=== PATIENT | male | born 1935 | race African-American/Black ===

== ENCOUNTER 2018-01-10 14:35 | Inpatient (IN) | payer MEDICARE ==
[~2018-01-10] VITALS: Ht 182.9 cm; Wt 79.6 kg
[2018-01-10] MEDS ORDERED: CLONIDINE 0.2MG TABLET PO ONE (16:00)
[2018-01-10 16:31] LABS: BASOPHILS % 0.6 % (0.0-2.0); EOSINOPHILS % 0.3 % (0.0-5.0); HEMATOCRIT. 38.9 % (42.0-52.0); HEMOGLOBIN. 13.2 g/dL (14.0-18.0); LYMPHOCYTES % 14.9 % (20.0-50.0); MEAN CORPUSCULAR HEMOGLOBIN 32.4 pg (28.0-32.0); MEAN CORPUSCULAR VOLUME 95.8 fL (80.0-94.0); MONOCYTES % 12.2 % (2.0-8.0); PLATELET 217 x1000/uL (130-400); RED BLOOD CELL COUNT 4.06 mill/uL (4.7-6.1); RED CELL DISTRIBUTION WIDTH 14.4 % (11.6-14.6)
[2018-01-10 16:34] LABS: CHLORIDE 105 mEq/L (98-107)
[2018-01-10 16:36] LABS: PROTHROMBIN TIME 10.1 sec (9.1-11.1)
[2018-01-10] MEDS ORDERED: ACETAMINOPHEN 325MG TABLET PO ONE (17:00)
[2018-01-10 19:18] LABS: CLARITY URINE CLEAR (CLEAR); COLOR URINE YELLOW (YELLOW); KETONES URINE 2+ (NEGATIVE); LEUKOCYTE ESTERASE URINE 1+ (NEGATIVE); NITRITE URINE POSITIVE (NEGATIVE); OCCULT BLOOD URINE TRACE (NEGATIVE); PH URINE 5.5 (4.5-8.0); PROTEIN URINE TRACE (NEGATIVE); SPECIFIC GRAVITY URINE 1.022 (1.005-1.030)
[2018-01-10 20:00] VITALS: BP_SYST 127; BP_SYST 165; BP_DIAS 58; BP_DIAS 93
[2018-01-10] MEDS ORDERED: CEFTRIAXONE 1 G PREMIX 50 ML IV ONE (20:30)
[2018-01-10] MEDS ORDERED: MORPHINE SULFATE 4 MG/ML CPJ (NOT FOR IM USE) IV PRN (20:45)
[2018-01-10] MEDS ORDERED: ONDANSETRON HCL 4MG/2ML INJ IV PRN (20:45)
[2018-01-10 22:00] VITALS: BP 165/93
[2018-01-10] MEDS: LOSARTAN POTASSIUM 50 MG TABLET PO SCH (22:48)
[2018-01-11] VITALS: BP 169/70
[2018-01-11 04:00] VITALS: BP 174/68
[2018-01-11 05:51] LABS: HEMATOCRIT. 35.7 % (42.0-52.0); HEMOGLOBIN. 11.9 g/dL (14.0-18.0); MEAN CORPUSCULAR HEMOGLOBIN 31.7 pg (28.0-32.0); MEAN CORPUSCULAR VOLUME 95.1 fL (80.0-94.0); MEAN PLATELET VOLUME 9.2 fl (7.4-10.4); PLATELET 179 x1000/uL (130-400); RED BLOOD CELL COUNT 3.76 mill/uL (4.7-6.1); RED CELL DISTRIBUTION WIDTH 14.5 % (11.6-14.6)
[2018-01-11] MEDS: CLONIDINE 0.1MG TABLET PO PRN ×2 (05:51→16:33)
[2018-01-11 06:38] LABS: CHLORIDE 106 mEq/L (98-107)
[2018-01-11 08:00] VITALS: BP 172/86
[2018-01-11] MEDS: AMLODIPINE 10MG TABLET PO SCH (08:13)
[2018-01-11] MEDS: ENOXAPARIN 40MG/0.4ML SYR SUBCUT SCH (08:13)
[2018-01-11] MEDS: LOSARTAN POTASSIUM 50 MG TABLET PO SCH ×2 (08:13→20:14)
[2018-01-11 09:18] LABS: PLATELET ESTIMATE NORMAL
[2018-01-11] MEDS ORDERED: IOHEXOL-350 100 ML BOTTLE ONE (09:48)
[2018-01-11] MEDS ORDERED: CLONIDINE 0.1MG TABLET PO PRN (12:00)
[2018-01-11] MEDS: LEVOFLOXACIN 500MG PREMIX 100 ML IV SCH (14:11)
[2018-01-11] MEDS ORDERED: POTASSIUM CHLORIDE 20MEQ TABLET SR PO NR (16:30)
[2018-01-11 18:49] VITALS: BP 144/68
[2018-01-11 20:00] VITALS: BP 187/77
[2018-01-11 20:12] VITALS: BP 168/80
[2018-01-12] VITALS (8 sets, daily range): BP systolic 141–199; BP diastolic 75–91
[2018-01-12] MEDS: CLONIDINE 0.1MG TABLET PO PRN ×2 (01:16→06:18)
[2018-01-12] MEDS: AMLODIPINE 10MG TABLET PO SCH (08:33)
[2018-01-12] MEDS: LOSARTAN POTASSIUM 50 MG TABLET PO SCH (08:33)
[2018-01-12] MEDS: ENOXAPARIN 40MG/0.4ML SYR SUBCUT SCH (08:33)
[2018-01-12] MEDS ORDERED: CLOTRIMAZOLE 1% CREAM 30GM TOP SCH (10:30)
[2018-01-12] MEDS: LEVOFLOXACIN 500MG PREMIX 100 ML IV SCH (14:00)
[2018-01-12] MEDS ORDERED: HYDRALAZINE HCL 100MG TABLET PO NR (18:03)
== END 2018-01-12 20:25 | disposition home health service (06) | DRG 300 ==
LOC: ER 14:35 → 5WST 19:16 → ENRESERV 20:10
PROVIDERS: ADMIT Hospitalist; ATTEND Hospitalist
DX: I73.9 Peripheral vascular disease, unspecified (principal); N39.0 Urinary tract infection, site not specified; E87.2 Acidosis; L97.219 Non-pressure chronic ulcer of right calf with unspecified severity; I16.0 Hypertensive urgency; E87.6 Hypokalemia; B35.1 Tinea unguium; B35.3 Tinea pedis; I10 Essential (primary) hypertension; Z91.81 History of falling; B96.20 Unspecified Escherichia coli [E. coli] as the cause of diseases classified elsewhere
CPT/HCPCS: 36415; 71045; 72191; 73706; 80048; 80053; 81003; 83605; 83880; 84484; 85025; 85610; 85730; 87040; 87077; 87086; 87186; 93005; 93923; 93970; 96365; 99285; J0696; J1650; J1956; J2270; J7050; Q9967

== ENCOUNTER 2018-06-16 11:36 | Inpatient (IN) | payer MEDICARE ==
[~2018-06-16] VITALS: Ht 182.9 cm; Wt 81.2 kg
[2018-06-16] MEDS ORDERED: HYDRALAZINE 20MG/ML VIAL IV ONE ×2 (17:00→19:30)
[2018-06-16 17:27] LABS: HEMATOCRIT. 42.1 % (42.0-52.0); HEMOGLOBIN. 14.1 g/dL (14.0-18.0); MEAN CORPUSCULAR HEMOGLOBIN 31.8 pg (28.0-32.0); MEAN CORPUSCULAR VOLUME 95.3 fL (80.0-94.0); MEAN PLATELET VOLUME 8.9 fl (7.4-10.4); PLATELET 258 x1000/uL (130-400); RED BLOOD CELL COUNT 4.41 mill/uL (4.7-6.1)
[2018-06-16 17:33] LABS: CHLORIDE 102 mEq/L (98-107)
[2018-06-16 17:53] LABS: PLATELET ESTIMATE NORMAL
[2018-06-16] MEDS ORDERED: CLINDAMYCIN 900 MG in DEXTROSE 5% WATER 50 ML IV ONE (18:15)
[2018-06-16] MEDS ORDERED: SODIUM CHLORIDE 0.9% 250 ML IV ONE (20:15)
[2018-06-16] MEDS ORDERED: LABETALOL 5MG/ML SYR 20 MG/4 ML SYRINGE IV ONE (21:00)
[2018-06-16] MEDS ORDERED: NITROGLYCERIN 0.4MG TABLET SL SL PRN (21:15)
[2018-06-16] MEDS ORDERED: ACETAMINOPHEN 325MG TABLET PO PRN (21:15)
[2018-06-16] MEDS ORDERED: ZOLPIDEM TARTRATE 5MG TABLET PO PRN (21:15)
[2018-06-16] MEDS ORDERED: MAGNESIUM/ALUMINUM HYDROXIDE/SIMETHICONE 30ML UDC PO PRN (21:15)
[2018-06-16] MEDS ORDERED: GUAIFENESIN 200MG/10ML SUGAR FREE UDC PO PRN (21:15)
[2018-06-16] MEDS ORDERED: ONDANSETRON HCL 4MG/2ML INJ IV PRN (21:15)
[2018-06-16] MEDS ORDERED: DOCUSATE SODIUM 100MG CAPSULE PO PRN (21:15)
[2018-06-16] MEDS ORDERED: IPRATROPIUM/ALBUTEROL 0.5-3(2.5)MG/3ML NEB INH PRN (21:15)
[2018-06-16] MEDS ORDERED: TRAMADOL 50MG TABLET PO PRN (21:45)
[2018-06-16] MEDS ORDERED: MORPHINE SULFATE 4 MG/ML CPJ (NOT FOR IM USE) IV PRN (21:45)
[2018-06-17] MEDS: CLONIDINE 0.1MG TABLET PO PRN (00:44)
[2018-06-17 01:15] VITALS: BP 128/87
[2018-06-17 01:54] VITALS: BP 128/87
[2018-06-17] MEDS: PIPERACILLIN/TAZ 3.375G PREMIX 50 ML IV SCH ×3 (02:56→21:21)
[2018-06-17] MEDS: SODIUM CHLORIDE 0.9% 1,000 ML IV SCH ×2 (02:57→20:44)
[2018-06-17] MEDS ORDERED: VANCOMYCIN 1 G PREMIX 200 ML IV SCH (03:00)
[2018-06-17 04:00] VITALS: BP 151/69
[2018-06-17 08:00] VITALS: BP 156/77
[2018-06-17] MEDS: METOPROLOL TARTRATE 25MG TABLET PO SCH ×2 (11:00→20:45)
[2018-06-17] MEDS: ASCORBIC ACID 500 MG TABLET PO SCH ×2 (11:01→20:44)
[2018-06-17] MEDS: ASPIRIN 325MG EC TABLET PO SCH (11:01)
[2018-06-17] MEDS: FAMOTIDINE 20MG TABLET PO SCH ×2 (11:01→20:44)
[2018-06-17] MEDS: ZINC SULFATE 220 MG ( 50 ) CAPSULE PO SCH (11:01)
[2018-06-17] MEDS: ENOXAPARIN 40MG/0.4ML SYR SUBCUT SCH (11:02)
[2018-06-17 12:00] VITALS: BP 158/69
[2018-06-17] MEDS: VANCOMYCIN 1 G PREMIX 200 ML IV SCH ×2 (14:18→23:26)
[2018-06-17 20:00] VITALS: BP 160/79
[2018-06-18] VITALS: BP 187/81
[2018-06-18] MEDS: CLONIDINE 0.1MG TABLET PO PRN (01:22)
[2018-06-18 01:46] LABS: *AMPHETAMINES SCREEN URINE NEGATIVE (NEGATIVE); CANNABINOID URINE SCREEN NEGATIVE (NEGATIVE); METHADONE URINE SCREEN NEGATIVE (NEGATIVE); OPIATES URINE SCREEN NEGATIVE (NEGATIVE); PHENCYCLIDINE URINE SCREEN NEGATIVE (NEGATIVE)
[2018-06-18 01:47] LABS: *BARBITURATES SCREEN URINE NEGATIVE (NEGATIVE); *BENZODIAZEPINES SCREEN URINE NEGATIVE (NEGATIVE); *COCAINE SCREEN URINE NEGATIVE (NEGATIVE)
[2018-06-18 04:00] VITALS: BP 197/80
[2018-06-18] MEDS: PIPERACILLIN/TAZ 3.375G PREMIX 50 ML IV SCH ×3 (04:32→20:29)
[2018-06-18 06:36] LABS: CHLORIDE 110 mEq/L (98-107)
[2018-06-18 08:00] VITALS: BP 195/88
[2018-06-18] MEDS: ASCORBIC ACID 500 MG TABLET PO SCH ×2 (09:24→20:29)
[2018-06-18] MEDS: FAMOTIDINE 20MG TABLET PO SCH ×2 (09:24→20:29)
[2018-06-18] MEDS: LISINOPRIL 20MG TABLET PO SCH ×2 (09:24→20:35)
[2018-06-18] MEDS: ZINC SULFATE 220 MG ( 50 ) CAPSULE PO SCH (09:24)
[2018-06-18] MEDS: AMLODIPINE 10MG TABLET PO SCH (09:25)
[2018-06-18] MEDS: METOPROLOL TARTRATE 25MG TABLET PO SCH ×2 (09:25→20:31)
[2018-06-18] MEDS: ENOXAPARIN 40MG/0.4ML SYR SUBCUT SCH (09:27)
[2018-06-18] MEDS: ASPIRIN 325MG EC TABLET PO SCH (09:28)
[2018-06-18] MEDS ORDERED: POTASSIUM CHLORIDE 20MEQ/PACKET PO NR (11:00)
[2018-06-18] MEDS: MULTIVITAMINS,THER W-MINERALS TABLET PO SCH (17:05)
[2018-06-18] MEDS: SODIUM CHLORIDE 0.9% 1,000 ML IV SCH (17:06)
[2018-06-18 20:00] VITALS: BP 143/75
[2018-06-18] MEDS ORDERED: VANCOMYCIN 1 G PREMIX 200 ML IV NR (21:00)
[2018-06-19] VITALS: BP 155/75
[2018-06-19 04:00] VITALS: BP 148/69
[2018-06-19] MEDS: PIPERACILLIN/TAZ 3.375G PREMIX 50 ML IV SCH ×3 (04:56→21:44)
[2018-06-19 08:00] VITALS: BP 148/69
[2018-06-19] MEDS: ENOXAPARIN 40MG/0.4ML SYR SUBCUT SCH (09:00)
[2018-06-19] MEDS: ASPIRIN 325MG EC TABLET PO SCH (09:06)
[2018-06-19] MEDS: METOPROLOL TARTRATE 25MG TABLET PO SCH ×2 (09:07→21:44)
[2018-06-19] MEDS: LISINOPRIL 20MG TABLET PO SCH ×2 (09:07→21:43)
[2018-06-19] MEDS: AMLODIPINE 10MG TABLET PO SCH (09:07)
[2018-06-19] MEDS: ASCORBIC ACID 500 MG TABLET PO SCH ×2 (09:07→21:43)
[2018-06-19] MEDS: MULTIVITAMINS,THER W-MINERALS TABLET PO SCH (09:07)
[2018-06-19] MEDS: FAMOTIDINE 20MG TABLET PO SCH ×2 (09:07→21:43)
[2018-06-19] MEDS: ZINC SULFATE 220 MG ( 50 ) CAPSULE PO SCH (09:07)
[2018-06-19 12:00] VITALS: BP 153/79
[2018-06-19] MEDS: SODIUM CHLORIDE 0.9% 1,000 ML IV SCH ×2 (15:00→20:07)
[2018-06-19 16:00] VITALS: BP 142/81
[2018-06-19 20:00] VITALS: BP 194/88
[2018-06-19] MEDS: VANCOMYCIN 1 G PREMIX 200 ML IV SCH (20:07)
[2018-06-20] VITALS: BP 197/85
[2018-06-20] MEDS: CLONIDINE 0.1MG TABLET PO PRN ×2 (00:22→17:29)
[2018-06-20 04:00] VITALS: BP 163/70
[2018-06-20] MEDS: PIPERACILLIN/TAZ 3.375G PREMIX 50 ML IV SCH ×3 (05:05→20:39)
[2018-06-20 07:42] LABS: CHLORIDE 108 mEq/L (98-107)
[2018-06-20 07:43] LABS: BASOPHILS % 1.2 % (0.0-2.0); HEMATOCRIT. 34.6 % (42.0-52.0); HEMOGLOBIN. 11.5 g/dL (14.0-18.0); LYMPHOCYTES % 29.1 % (20.0-50.0); MEAN CORPUSCULAR HEMOGLOBIN 31.6 pg (28.0-32.0); MEAN CORPUSCULAR VOLUME 94.7 fL (80.0-94.0); MEAN PLATELET VOLUME 9.1 fl (7.4-10.4); MONOCYTES % 13.2 % (2.0-8.0); NEUTROPHILS % 52.5 % (40.0-76.0); PLATELET 259 x1000/uL (130-400); RED BLOOD CELL COUNT 3.65 mill/uL (4.7-6.1); RED CELL DISTRIBUTION WIDTH 13.9 % (11.6-14.6)
[2018-06-20 08:00] VITALS: BP 133/94
[2018-06-20] MEDS: ASPIRIN 325MG EC TABLET PO SCH (09:21)
[2018-06-20] MEDS: FAMOTIDINE 20MG TABLET PO SCH ×2 (09:21→20:39)
[2018-06-20] MEDS: LISINOPRIL 20MG TABLET PO SCH ×2 (09:21→20:37)
[2018-06-20] MEDS: ASCORBIC ACID 500 MG TABLET PO SCH ×2 (09:21→20:37)
[2018-06-20] MEDS: ZINC SULFATE 220 MG ( 50 ) CAPSULE PO SCH (09:21)
[2018-06-20] MEDS: MULTIVITAMINS,THER W-MINERALS TABLET PO SCH (09:21)
[2018-06-20] MEDS: METOPROLOL TARTRATE 25MG TABLET PO SCH ×2 (09:21→20:37)
[2018-06-20] MEDS: AMLODIPINE 10MG TABLET PO SCH (09:21)
[2018-06-20] MEDS: ENOXAPARIN 40MG/0.4ML SYR SUBCUT SCH (09:22)
[2018-06-20] MEDS: CLOTRIMAZOLE 1% CREAM 30GM TOP SCH (10:03)
[2018-06-20] MEDS: VANCOMYCIN 1 G PREMIX 200 ML IV SCH (11:56)
[2018-06-20 12:00] VITALS: BP 155/73
[2018-06-20] MEDS ORDERED: HYDRALAZINE 20MG/ML VIAL IV PRN (13:45)
[2018-06-20 16:00] VITALS: BP 171/82
[2018-06-20 20:00] VITALS: BP 151/74
[2018-06-20] MEDS: ATORVASTATIN CALCIUM 20MG TABLET PO SCH (20:39)
[2018-06-20] MEDS: SODIUM CHLORIDE 0.9% 1,000 ML IV SCH (22:11)
[2018-06-21] VITALS: BP 152/73
[2018-06-21 04:00] VITALS: BP 148/75
[2018-06-21] MEDS: PIPERACILLIN/TAZ 3.375G PREMIX 50 ML IV SCH ×3 (05:06→20:52)
[2018-06-21 08:00] VITALS: BP 188/77
[2018-06-21] MEDS: CLOTRIMAZOLE 1% CREAM 30GM TOP SCH (09:00)
[2018-06-21] MEDS: ASPIRIN 325MG EC TABLET PO SCH (09:16)
[2018-06-21] MEDS: AMLODIPINE 10MG TABLET PO SCH ×2 (09:16→20:53)
[2018-06-21] MEDS: METOPROLOL TARTRATE 25MG TABLET PO SCH ×2 (09:16→20:52)
[2018-06-21] MEDS: ENOXAPARIN 40MG/0.4ML SYR SUBCUT SCH (09:17)
[2018-06-21] MEDS: ASCORBIC ACID 500 MG TABLET PO SCH ×2 (09:17→20:52)
[2018-06-21] MEDS: ZINC SULFATE 220 MG ( 50 ) CAPSULE PO SCH (09:17)
[2018-06-21] MEDS: MULTIVITAMINS,THER W-MINERALS TABLET PO SCH (09:17)
[2018-06-21] MEDS: LISINOPRIL 20MG TABLET PO SCH ×2 (09:17→20:52)
[2018-06-21] MEDS: FAMOTIDINE 20MG TABLET PO SCH ×2 (09:17→21:00)
[2018-06-21] MEDS: VANCOMYCIN 1 G PREMIX 200 ML IV SCH (09:18)
[2018-06-21] MEDS ORDERED: POTASSIUM CHLORIDE 20MEQ/PACKET PO NR (11:45)
[2018-06-21] MEDS ORDERED: HYDRALAZINE 20MG/ML VIAL IV PRN (11:45)
[2018-06-21 12:00] VITALS: BP_SYST 103; BP_SYST 146; BP_DIAS 72
[2018-06-21] MEDS: HYDRALAZINE HCL 50MG TABLET PO SCH ×2 (14:11→22:37)
[2018-06-21 16:43] VITALS: BP 103/72
[2018-06-21 20:00] VITALS: BP 172/75
[2018-06-21] MEDS: ATORVASTATIN CALCIUM 20MG TABLET PO SCH (20:52)
[2018-06-22] VITALS (15 sets, daily range): BP systolic 105–173; BP diastolic 58–94
[2018-06-22] MEDS: PIPERACILLIN/TAZ 3.375G PREMIX 50 ML IV SCH ×3 (05:46→21:18)
[2018-06-22] MEDS: HYDRALAZINE HCL 50MG TABLET PO SCH ×3 (05:47→22:31)
[2018-06-22] MEDS: ASPIRIN 325MG EC TABLET PO SCH (08:55)
[2018-06-22] MEDS: MULTIVITAMINS,THER W-MINERALS TABLET PO SCH (08:56)
[2018-06-22] MEDS: ZINC SULFATE 220 MG ( 50 ) CAPSULE PO SCH (08:56)
[2018-06-22] MEDS: CLOTRIMAZOLE 1% CREAM 30GM TOP SCH (08:56)
[2018-06-22] MEDS: FAMOTIDINE 20MG TABLET PO SCH ×2 (08:56→21:20)
[2018-06-22] MEDS: ASCORBIC ACID 500 MG TABLET PO SCH ×2 (08:56→21:18)
[2018-06-22] MEDS: METOPROLOL TARTRATE 25MG TABLET PO SCH ×2 (08:58→21:19)
[2018-06-22] MEDS: AMLODIPINE 10MG TABLET PO SCH ×2 (08:58→21:20)
[2018-06-22] MEDS: LISINOPRIL 20MG TABLET PO SCH ×2 (08:58→21:21)
[2018-06-22] MEDS: VANCOMYCIN 1 G PREMIX 200 ML IV SCH (09:00)
[2018-06-22] MEDS ORDERED: MIDAZOLAM HCL 2 MG/2 ML VIAL ONE (10:07)
[2018-06-22] MEDS ORDERED: IODIXANOL 320MG/ML 100 ML BOTTLE IV ONE (10:08)
[2018-06-22] MEDS ORDERED: LIDOCAINE HCL 1% 20ML VIAL (Pyxis) INJ ONE (10:08)
[2018-06-22] MEDS ORDERED: FENTANYL CITRATE/PF 50MCG/ML 2ML VIAL ONE (10:08)
[2018-06-22] MEDS ORDERED: ASPIRIN/SOD BICARB/CITRIC ACID 324MG TAB EFF ONE (10:09)
[2018-06-22] MEDS ORDERED: METOPROLOL TARTRATE 5MG/5ML VIAL IV ONE (10:18)
[2018-06-22] MEDS ORDERED: LABETALOL HCL 5MG/ML VIAL 20ML IV ONE (10:27)
[2018-06-22] MEDS ORDERED: HYDRALAZINE 20MG/ML VIAL ONE (10:32)
[2018-06-22] MEDS ORDERED: NITROGLYCERIN 50MG PREMIX 0 ML IV ONE (10:43)
[2018-06-22] MEDS ORDERED: MAGNESIUM 2 G PREMIX 50 ML IV ONE ×2 (10:59→12:30)
[2018-06-22 11:16] LABS: BASOPHILS % 1.2 % (0.0-2.0); EOSINOPHILS % 1.7 % (0.0-5.0); HEMATOCRIT. 37.1 % (42.0-52.0); HEMOGLOBIN. 12.5 g/dL (14.0-18.0); LYMPHOCYTES % 19.5 % (20.0-50.0); MEAN CORPUSCULAR HEMOGLOBIN 31.3 pg (28.0-32.0); MEAN CORPUSCULAR VOLUME 92.8 fL (80.0-94.0); MEAN PLATELET VOLUME 8.6 fl (7.4-10.4); MONOCYTES % 12.8 % (2.0-8.0); NEUTROPHILS % 64.8 % (40.0-76.0); PLATELET 302 x1000/uL (130-400); RED CELL DISTRIBUTION WIDTH 13.9 % (11.6-14.6)
[2018-06-22] MEDS ORDERED: PROTAMINE SULFATE 10MG/ML VIAL 5ML IV ONE (11:23)
[2018-06-22 11:28] LABS: CHLORIDE 108 mEq/L (98-107)
[2018-06-22 11:37] LABS: T4 FREE 1.76 ng/dL (0.76-1.46)
[2018-06-22 12:19] LABS: VITAMIN B12 SERUM 791 pg/mL (211-911)
[2018-06-22] MEDS ORDERED: POTASSIUM CHLORIDE 20MEQ/PACKET PO SCH (12:30)
[2018-06-22] MEDS: FOLIC ACID 1 MG, THIAMINE HCL 100 MG, MVI, ADULT NO.1 10 ML in DEXTROSE 5% WATER 1,000 ML IV SCH ×4 (13:52)
[2018-06-22] MEDS ORDERED: ACETAMINOPHEN 325MG TABLET PO PRN (14:00)
[2018-06-22] MEDS ORDERED: KCL 20MEQ/100ML PREMIX 100 ML IV SCH (14:00)
[2018-06-22] MEDS ORDERED: ATROPINE SULFATE 1MG/10ML SYR IV PRN (14:00)
[2018-06-22] MEDS: CHLORDIAZEPOXIDE 25MG CAPSULE PO SCH ×2 (14:20→22:31)
[2018-06-22] MEDS ORDERED: HEPARIN SODIUM 1,000 UNIT/1ML VIAL IV ONE (14:48)
[2018-06-22] MEDS: CLONIDINE 0.1MG TABLET PO PRN (17:28)
[2018-06-22] MEDS: SODIUM CHLORIDE 0.45% 1,000 ML IV SCH (20:58)
[2018-06-22] MEDS ORDERED: CILOSTAZOL 100MG TABLET PO SCH (21:00)
[2018-06-22] MEDS: ATORVASTATIN CALCIUM 20MG TABLET PO SCH (21:18)
[2018-06-22] MEDS: CILOSTAZOL 100MG TABLET PO SCH (22:32)
[2018-06-23] VITALS (10 sets, daily range): BP systolic 117–147; BP diastolic 54–93
[2018-06-23] MEDS: SODIUM CHLORIDE 0.45% 1,000 ML IV SCH ×2 (04:00→13:42)
[2018-06-23] MEDS: PIPERACILLIN/TAZ 3.375G PREMIX 50 ML IV SCH (04:23)
[2018-06-23] MEDS: HYDRALAZINE HCL 50MG TABLET PO SCH ×2 (06:37→13:40)
[2018-06-23] MEDS: CHLORDIAZEPOXIDE 25MG CAPSULE PO SCH ×2 (06:37→13:35)
[2018-06-23 07:29] LABS: BASOPHILS % 0.9 % (0.0-2.0); EOSINOPHILS % 2.2 % (0.0-5.0); HEMATOCRIT. 33.7 % (42.0-52.0); HEMOGLOBIN. 11.2 g/dL (14.0-18.0); LYMPHOCYTES % 26.5 % (20.0-50.0); MEAN CORPUSCULAR HEMOGLOBIN 31.4 pg (28.0-32.0); MEAN CORPUSCULAR VOLUME 94.5 fL (80.0-94.0); MEAN PLATELET VOLUME 8.7 fl (7.4-10.4); MONOCYTES % 13.5 % (2.0-8.0); NEUTROPHILS % 56.9 % (40.0-76.0); PLATELET 252 x1000/uL (130-400); RED BLOOD CELL COUNT 3.56 mill/uL (4.7-6.1); RED CELL DISTRIBUTION WIDTH 14.2 % (11.6-14.6)
[2018-06-23 07:42] LABS: CHLORIDE 110 mEq/L (98-107)
[2018-06-23] MEDS: ASPIRIN 325MG EC TABLET PO SCH (08:41)
[2018-06-23] MEDS: LISINOPRIL 20MG TABLET PO SCH (08:41)
[2018-06-23] MEDS: ZINC SULFATE 220 MG ( 50 ) CAPSULE PO SCH (08:42)
[2018-06-23] MEDS: FAMOTIDINE 20MG TABLET PO SCH (08:42)
[2018-06-23] MEDS: ASCORBIC ACID 500 MG TABLET PO SCH (08:42)
[2018-06-23] MEDS: VANCOMYCIN 1 G PREMIX 200 ML IV SCH (08:42)
[2018-06-23] MEDS: METOPROLOL TARTRATE 25MG TABLET PO SCH (08:42)
[2018-06-23] MEDS: CILOSTAZOL 100MG TABLET PO SCH (08:42)
[2018-06-23] MEDS: AMLODIPINE 10MG TABLET PO SCH (08:42)
[2018-06-23] MEDS: MULTIVITAMINS,THER W-MINERALS TABLET PO SCH (08:42)
[2018-06-23] MEDS: CLOTRIMAZOLE 1% CREAM 30GM TOP SCH (09:58)
[2018-06-23] MEDS ORDERED: POTASSIUM CHLORIDE 20MEQ/PACKET PO SCH (13:00)
[2018-06-23] MEDS: FOLIC ACID 1 MG, THIAMINE HCL 100 MG, MVI, ADULT NO.1 10 ML in DEXTROSE 5% WATER 1,000 ML IV SCH ×4 (14:00)
[2018-06-23] MEDS ORDERED: CLINDAMYCIN HCL 150MG CAPSULE PO SCH (14:00)
== END 2018-06-23 18:01 | DRG 872 ==
LOC: ER 11:36 → EDBEDREQ 16:58 → SUPCPDRO 20:42 → 8WST 20:42 → EDBEDREQTM 20:45 → EDBEDREQ 20:45 → ENRESERV 23:47 → 3WST 06-22 12:15
PROVIDERS: ADMIT Internal Medicine; ATTEND Internal Medicine
PROC: B41G1ZZ Fluoroscopy of Left Lower Extremity Arteries using Low Osmolar Contrast (ICD-10-PCS; principal; 2018-06-22)
PROC: B41F1ZZ Fluoroscopy of Right Lower Extremity Arteries using Low Osmolar Contrast (ICD-10-PCS; 2018-06-22)
DX: A41.9 Sepsis, unspecified organism (principal); L97.909 Non-pressure chronic ulcer of unspecified part of unspecified lower leg with unspecified severity; E87.2 Acidosis; L03.116 Cellulitis of left lower limb; L97.929 Non-pressure chronic ulcer of unspecified part of left lower leg with unspecified severity; R65.20 Severe sepsis without septic shock; I10 Essential (primary) hypertension; I16.0 Hypertensive urgency; R79.89 Other specified abnormal findings of blood chemistry; B35.3 Tinea pedis; E83.51 Hypocalcemia; E87.6 Hypokalemia; I70.202 Unspecified atherosclerosis of native arteries of extremities, left leg; N28.9 Disorder of kidney and ureter, unspecified; Z91.81 History of falling; R26.9 Unspecified abnormalities of gait and mobility
CPT/HCPCS: 36246; 36415; 71045; 73590; 73718; 75710; 80048; 80061; 80202; 80305; 82140; 82607; 83036; 83605; 83735; 83880; 84439; 84443; 84484; 85347; 93005; 93306; 93923; 93970; 96365; 96375; 97162; 97165; 99291; C1725; C1760; C1769; C1893; J0360; J1644; J1650; J2250; J2543; J2720; J3010; J3370; J3411; J3475; J3480; J3490; J7060; J7070; Q9967

== ENCOUNTER 2020-05-23 16:13 | Inpatient (IN) | payer MEDICARE ==
[~2020-05-23] VITALS: Ht 180.3 cm; Wt 75.3 kg
[~2020-05-23 16:13] MED LIST: AMLO10TA80 PO; ATOR20TA PO; CILO100T PO; CLON-457 PO; FAMO20TA8 PO; HYDR-4135 PO; LISI20TA31 PO; METO-396 PO; NITR0.4T49 SL; ONDA4TAB11 PO
[2020-05-23] MEDS ORDERED: METO-539 MT (16:51)
[2020-05-23] MEDS ORDERED: CLON-457 PO (16:51)
[2020-05-23] MEDS ORDERED: ASPI-1497 MT (16:51)
[2020-05-23] MEDS ORDERED: ALBU4TAB6 INH (16:51)
[2020-05-23] MEDS ORDERED: CRAN250C PO (16:51)
[2020-05-23] MEDS ORDERED: GABA-529 MT (16:51)
[2020-05-23] MEDS ORDERED: DOCU-138 MT (16:51)
[2020-05-23] MEDS ORDERED: APIX5TAB MT (16:51)
[2020-05-23] MEDS ORDERED: OXYC-662 MT (16:51)
[2020-05-23] MEDS ORDERED: FERR325T6 MT (16:51)
[2020-05-23] MEDS ORDERED: TOPUD MT (16:51)
[2020-05-23] MEDS ORDERED: ASCO-339 MT (16:51)
[2020-05-23] MEDS ORDERED: MELA1LIQ MT (16:51)
[2020-05-23] MEDS ORDERED: ACET-2708 MT (16:51)
[2020-05-23 17:03] VITALS: BP 123/75
[2020-05-23] MEDS ORDERED: DOCUSATE SODIUM 100MG CAPSULE PO PRN (19:45)
[2020-05-23] MEDS ORDERED: DIPHENHYDRAMINE 50MG/ML VIAL IV PRN (19:45)
[2020-05-23] MEDS ORDERED: ONDANSETRON HCL 4MG/2ML INJ IV PRN (19:45)
[2020-05-23] MEDS ORDERED: GUAIFENESIN 200MG/10ML SUGAR FREE UDC PO PRN (19:45)
[2020-05-23] MEDS ORDERED: ACETAMINOPHEN 325MG TABLET PO PRN (19:45)
[2020-05-23] MEDS ORDERED: HYDRALAZINE 20MG/ML VIAL IV PRN (19:45)
[2020-05-23] MEDS ORDERED: IPRATROPIUM/ALBUTEROL 0.5-3(2.5)MG/3ML NEB HHN PRN (19:45)
[2020-05-23] MEDS ORDERED: LORAZEPAM 2MG/ML CPJ IV PRN (19:45)
[2020-05-23] MEDS ORDERED: MAGNESIUM/ALUMINUM HYDROXIDE/SIMETHICONE 30ML UDC PO PRN (19:45)
[2020-05-23] MEDS ORDERED: MORPHINE SULFATE 2 MG/ML CPJ (NOT FOR IM USE) IV PRN (19:45)
[2020-05-23] MEDS ORDERED: HYDROCODONE/ACETAMINOPHEN 10/325MG TABLET PO PRN (19:45)
[2020-05-23 20:00] VITALS: BP 154/61
[2020-05-23] MEDS ORDERED: HYDRALAZINE 10 MG in SODIUM CHLORIDE 0.9% 49.5 ML IV PRN (20:00)
[2020-05-23] MEDS: SODIUM CHLORIDE 0.9% INJ 3ML FLUSH IVF SCH (22:45)
[2020-05-24] VITALS: BP 145/67
[2020-05-24 04:00] VITALS: BP 163/63
[2020-05-24] MEDS: SODIUM CHLORIDE 0.9% INJ 3ML FLUSH IVF SCH ×3 (06:17→22:36)
[2020-05-24] MEDS: CLONIDINE 0.1MG TABLET PO PRN (06:28)
[2020-05-24 07:51] LABS: EOSINOPHILS % 3.1 % (0.0-5.0); HEMATOCRIT. 34.9 % (42.0-52.0); HEMOGLOBIN. 11.9 g/dL (14.0-18.0); LYMPHOCYTES % 38.6 % (20.0-50.0); MEAN CORPUSCULAR HEMOGLOBIN 30.3 pg (28.0-32.0); MEAN CORPUSCULAR VOLUME 88.7 fL (80.0-94.0); MEAN PLATELET VOLUME 8.5 fl (7.4-10.4); MONOCYTES % 11.3 % (2.0-8.0); PLATELET 196 x1000/uL (130-400); RED BLOOD CELL COUNT 3.94 mill/uL (4.7-6.1); RED CELL DISTRIBUTION WIDTH 13.7 % (11.6-14.6)
[2020-05-24 08:00] VITALS: BP 126/58
[2020-05-24 08:22] LABS: CHLORIDE 108 mEq/L (98-107)
[2020-05-24] MEDS: ENOXAPARIN 40MG/0.4ML SYR SUBCUT SCH (10:15)
[2020-05-24 12:00] VITALS: BP 122/58
[2020-05-24 16:00] VITALS: BP 126/62
[2020-05-24] MEDS: SODIUM CHLORIDE 0.45% 1,000 ML IV SCH (18:35)
[2020-05-24 20:00] VITALS: BP 156/67
[2020-05-25] VITALS: BP 149/70
[2020-05-25 04:00] VITALS: BP 156/68
[2020-05-25] MEDS: SODIUM CHLORIDE 0.9% INJ 3ML FLUSH IVF SCH ×3 (05:09→22:00)
[2020-05-25 08:00] VITALS: BP 148/64
[2020-05-25] MEDS: ENOXAPARIN 40MG/0.4ML SYR SUBCUT SCH (08:57)
[2020-05-25 14:00] VITALS: BP 162/64
[2020-05-25] MEDS: CLONIDINE 0.1MG TABLET PO PRN (14:01)
[2020-05-25 15:00] VITALS: BP 137/66
[2020-05-25] MEDS: SODIUM CHLORIDE 0.45% 1,000 ML IV SCH (18:13)
[2020-05-25 20:00] VITALS: BP 152/68
[2020-05-26] VITALS: BP 168/71
[2020-05-26] MEDS: CLONIDINE 0.1MG TABLET PO PRN (00:25)
[2020-05-26 00:30] VITALS: BP 148/65
[2020-05-26 04:00] VITALS: BP 146/63
[2020-05-26] MEDS: SODIUM CHLORIDE 0.9% INJ 3ML FLUSH IVF SCH (05:04)
[2020-05-26 08:00] VITALS: BP 150/70
[2020-05-26] MEDS: ENOXAPARIN 40MG/0.4ML SYR SUBCUT SCH (08:47)
[2020-05-26 12:00] VITALS: BP 144/61
== END 2020-05-26 12:55 | DRG 556 ==
LOC: 6EST 16:13
PROVIDERS: ADMIT Internal Medicine; ATTEND Internal Medicine
DX: M79.605 Pain in left leg (principal); R53.1 Weakness; M79.604 Pain in right leg; I12.9 Hypertensive chronic kidney disease with stage 1 through stage 4 chronic kidney disease, or unspecified chronic kidney disease; G40.909 Epilepsy, unspecified, not intractable, without status epilepticus; N18.9 Chronic kidney disease, unspecified; Z79.01 Long term (current) use of anticoagulants; Z79.02 Long term (current) use of antithrombotics/antiplatelets; Z79.899 Other long term (current) drug therapy; Z87.11 Personal history of peptic ulcer disease
CPT/HCPCS: 36415; 71045; 80053; 85025; 93970; J1650

== ENCOUNTER 2020-11-20 20:30 | Inpatient (IN) | payer MEDICARE, MEDICAID ==
[~2020-11-20] VITALS: Ht 182.9 cm; Wt 68.5 kg
[~2020-11-20 20:30] MED LIST changes: +ACET-2708 MT; +ALBU4TAB6 INH; +APIX5TAB MT; +ASCO-339 MT; +ASPI-1497 MT; +CRAN250C PO; +DOCU-138 MT; +FERR325T6 MT; +GABA-529 MT; +MELA1LIQ MT; +METO-539 MT; +OXYC-662 MT; +TOPUD MT
[2020-11-20 22:00] VITALS: BP 185/98
[2020-11-20 22:45] VITALS: BP 170/93
[2020-11-21 00:32] VITALS: BP 170/93
[2020-11-21] MEDS ORDERED: CLONIDINE 0.1MG TABLET PO PRN ×2 (01:00→04:30)
[2020-11-21] MEDS ORDERED: ACETAMINOPHEN 325MG TABLET PO PRN ×2 (01:00→04:30)
[2020-11-21 04:00] VITALS: BP 122/69
[2020-11-21] MEDS ORDERED: ONDANSETRON HCL 4MG/2ML INJ IV PRN (04:30)
[2020-11-21] MEDS ORDERED: ZOLPIDEM TARTRATE 5MG TABLET PO PRN (04:30)
[2020-11-21] MEDS ORDERED: LORAZEPAM 0.5MG TABLET PO PRN (04:30)
[2020-11-21] MEDS ORDERED: DIPHENHYDRAMINE 50MG/ML VIAL IV PRN (04:30)
[2020-11-21] MEDS ORDERED: MAGNESIUM/ALUMINUM HYDROXIDE/SIMETHICONE 30ML UDC PO PRN (04:30)
[2020-11-21] MEDS: SODIUM CHLORIDE 0.9% INJ 3ML FLUSH IVF SCH ×3 (05:00→21:06)
[2020-11-21 07:23] LABS: BASOPHILS % 0.6 % (0.0-2.0); EOSINOPHILS % 0.7 % (0.0-5.0); HEMATOCRIT. 27.1 % (42.0-52.0); HEMOGLOBIN. 8.9 g/dL (14.0-18.0); LYMPHOCYTES % 15.9 % (20.0-50.0); MEAN CORPUSCULAR HEMOGLOBIN 27.2 pg (28.0-32.0); MEAN CORPUSCULAR VOLUME 82.6 fL (80.0-94.0); MEAN PLATELET VOLUME 8.4 fl (7.4-10.4); NEUTROPHILS % 74.8 % (40.0-76.0); PLATELET 302 x1000/uL (130-400); RED BLOOD CELL COUNT 3.28 mill/uL (4.7-6.1); RED CELL DISTRIBUTION WIDTH 16.2 % (11.6-14.6)
[2020-11-21 07:30] LABS: CHLORIDE 108 mEq/L (98-107)
[2020-11-21 08:00] VITALS: BP 135/66
[2020-11-21] MEDS ORDERED: METOPROLOL TARTRATE 50MG TABLET PO SCH (09:00)
[2020-11-21] MEDS ORDERED: DOCUSATE SODIUM 100MG CAPSULE PO SCH (09:00)
[2020-11-21] MEDS ORDERED: AMLODIPINE 10MG TABLET PO SCH ×2 (09:00)
[2020-11-21] MEDS: METOPROLOL TARTRATE 50MG TABLET PO SCH ×2 (10:24→20:34)
[2020-11-21] MEDS: DOCUSATE SODIUM 100MG CAPSULE PO SCH ×2 (10:24→17:32)
[2020-11-21] MEDS: APIXABAN 5 MG TABLET PO SCH ×2 (10:24→17:32)
[2020-11-21 12:00] VITALS: BP 162/76
[2020-11-21 16:00] VITALS: BP 151/62
[2020-11-21 20:00] VITALS: BP 173/73
[2020-11-21] MEDS ORDERED: IPRATROPIUM/ALBUTEROL 0.5-3(2.5)MG/3ML NEB HHN PRN (20:45)
[2020-11-21] MEDS: NA PHOS,M-B/NA PHOS,DI-BA ENEMA 118ML PR NR ×2 (21:00→21:25)
[2020-11-21] MEDS: FAMOTIDINE 20MG/2ML VIAL IV SCH (21:24)
[2020-11-21] MEDS: BISACODYL 10MG SUPP PR NR (21:25)
[2020-11-21] MEDS: HYDRALAZINE 10 MG in SODIUM CHLORIDE 0.9% 49.5 ML IV SCH (22:00)
[2020-11-21] MEDS: DEXT 5%/0.45% NACL KCL 10MEQ/L 1,000 ML IV SCH (22:11)
[2020-11-21] MEDS ORDERED: GUAIFENESIN 200MG/10ML SUGAR FREE UDC PO PRN (23:00)
[2020-11-22] VITALS: BP 130/63
[2020-11-22] MEDS ORDERED: HYDRALAZINE 20MG/ML VIAL IV SCH
[2020-11-22] MEDS: IPRATROPIUM/ALBUTEROL 0.5-3(2.5)MG/3ML NEB HHN SCH ×4 (02:30→21:24)
[2020-11-22 04:00] VITALS: BP 124/68
[2020-11-22] MEDS: HYDRALAZINE 10 MG in SODIUM CHLORIDE 0.9% 49.5 ML IV SCH ×3 (04:00→15:34)
[2020-11-22] MEDS: NA PHOS,M-B/NA PHOS,DI-BA ENEMA 118ML PR NR (04:52)
[2020-11-22] MEDS: BISACODYL 10MG SUPP PR NR (04:56)
[2020-11-22] MEDS: DEXT 5%/0.45% NACL KCL 10MEQ/L 1,000 ML IV SCH ×2 (05:21→15:34)
[2020-11-22] MEDS: SODIUM CHLORIDE 0.9% INJ 3ML FLUSH IVF SCH ×3 (05:22→22:21)
[2020-11-22 08:00] VITALS: BP 125/65
[2020-11-22] MEDS ORDERED: CLONIDINE HCL 0.3MG/24HR PATCH TD SCH (09:00)
[2020-11-22] MEDS ORDERED: PROPRANOLOL HCL 10MG TABLET PO SCH (09:00)
[2020-11-22 09:43] LABS: INR 1.2
[2020-11-22] MEDS: METHIMAZOLE 5MG TABLET PO SCH (10:05)
[2020-11-22] MEDS: FAMOTIDINE 20MG/2ML VIAL IV SCH ×2 (10:07→20:27)
[2020-11-22] MEDS: ENOXAPARIN 80MG/0.8ML SYR SUBCUT SCH ×2 (10:07→20:24)
[2020-11-22 12:00] VITALS: BP 146/64
[2020-11-22 16:00] VITALS: BP 132/69
[2020-11-22 20:00] VITALS: BP 134/74
[2020-11-22] MEDS: METOPROLOL TARTRATE 50MG TABLET PO SCH (20:26)
[2020-11-22] MEDS: HYDRALAZINE HCL 50MG TABLET PO SCH (20:27)
[2020-11-22] MEDS: LACTULOSE 20G/30ML UDC PO SCH (22:21)
[2020-11-23] VITALS: BP 138/78
[2020-11-23] MEDS: IPRATROPIUM/ALBUTEROL 0.5-3(2.5)MG/3ML NEB HHN SCH ×4 (01:33→22:36)
[2020-11-23 04:00] VITALS: BP 140/92
[2020-11-23] MEDS: LACTULOSE 20G/30ML UDC PO SCH ×3 (06:00→21:22)
[2020-11-23] MEDS: SODIUM CHLORIDE 0.9% INJ 3ML FLUSH IVF SCH ×3 (06:44→21:22)
[2020-11-23] MEDS: DEXT 5%/0.45% NACL KCL 10MEQ/L 1,000 ML IV SCH ×2 (06:45→20:43)
[2020-11-23 08:00] VITALS: BP 150/77
[2020-11-23] MEDS: FAMOTIDINE 20MG/2ML VIAL IV SCH ×2 (09:49→20:47)
[2020-11-23] MEDS: METOPROLOL TARTRATE 50MG TABLET PO SCH ×2 (09:50→20:48)
[2020-11-23] MEDS: METHIMAZOLE 5MG TABLET PO SCH (09:50)
[2020-11-23] MEDS: HYDRALAZINE HCL 50MG TABLET PO SCH ×2 (09:50→20:49)
[2020-11-23] MEDS: ENOXAPARIN 80MG/0.8ML SYR SUBCUT SCH ×2 (09:51→20:44)
[2020-11-23 12:00] VITALS: BP 156/78
[2020-11-23 16:00] VITALS: BP 156/76
[2020-11-23 20:00] VITALS: BP 147/78
[2020-11-24] VITALS: BP 130/66
[2020-11-24 04:00] VITALS: BP 121/58
[2020-11-24] MEDS: LACTULOSE 20G/30ML UDC PO SCH ×3 (06:23→22:00)
[2020-11-24] MEDS: SODIUM CHLORIDE 0.9% INJ 3ML FLUSH IVF SCH ×3 (07:16→21:24)
[2020-11-24 08:00] VITALS: BP 128/65
[2020-11-24] MEDS: IPRATROPIUM/ALBUTEROL 0.5-3(2.5)MG/3ML NEB HHN SCH ×3 (08:25→21:45)
[2020-11-24] MEDS: METOPROLOL TARTRATE 50MG TABLET PO SCH ×2 (09:00→20:41)
[2020-11-24] MEDS: HYDRALAZINE HCL 50MG TABLET PO SCH (09:00)
[2020-11-24] MEDS: METHIMAZOLE 5MG TABLET PO SCH (09:00)
[2020-11-24] MEDS: FAMOTIDINE 20MG/2ML VIAL IV SCH ×2 (09:38→20:41)
[2020-11-24] MEDS: ENOXAPARIN 80MG/0.8ML SYR SUBCUT SCH ×2 (09:44→20:00)
[2020-11-24] MEDS: DEXT 5%/0.45% NACL KCL 10MEQ/L 1,000 ML IV SCH ×2 (11:34→23:42)
[2020-11-24 12:00] VITALS: BP 122/65
[2020-11-24 16:00] VITALS: BP 121/65
[2020-11-24] MEDS ORDERED: HYDRALAZINE HCL 25MG TABLET PO SCH (18:00)
[2020-11-24 20:00] VITALS: BP 162/76
[2020-11-24] MEDS: HYDRALAZINE HCL 25MG TABLET PO SCH (20:41)
[2020-11-24] MEDS ORDERED: HYDRALAZINE 10 MG in SODIUM CHLORIDE 0.9% 49.5 ML IV PRN (21:30)
[2020-11-25] VITALS: BP 143/77
[2020-11-25] MEDS: IPRATROPIUM/ALBUTEROL 0.5-3(2.5)MG/3ML NEB HHN SCH ×2 (02:10→20:23)
[2020-11-25 04:00] VITALS: BP 134/68
[2020-11-25] MEDS: LACTULOSE 20G/30ML UDC PO SCH ×3 (06:00→21:00)
[2020-11-25] MEDS: SODIUM CHLORIDE 0.9% INJ 3ML FLUSH IVF SCH ×3 (06:54→21:00)
[2020-11-25 07:27] LABS: CHLORIDE 108 mEq/L (98-107)
[2020-11-25 08:00] VITALS: BP 132/60
[2020-11-25] MEDS: ENOXAPARIN 80MG/0.8ML SYR SUBCUT SCH (08:50)
[2020-11-25] MEDS: FAMOTIDINE 20MG/2ML VIAL IV SCH ×2 (08:50→20:40)
[2020-11-25] MEDS: HYDRALAZINE HCL 25MG TABLET PO SCH ×2 (08:51→20:41)
[2020-11-25] MEDS: METOPROLOL TARTRATE 50MG TABLET PO SCH ×2 (08:52→20:40)
[2020-11-25] MEDS: METHIMAZOLE 5MG TABLET PO SCH (08:52)
[2020-11-25 12:00] VITALS: BP 134/68
[2020-11-25] MEDS: DEXT 5%/0.45% NACL KCL 10MEQ/L 1,000 ML IV SCH (14:11)
[2020-11-25 16:00] VITALS: BP 128/68
[2020-11-25 20:00] VITALS: BP 148/72
[2020-11-26] VITALS: BP 108/75
[2020-11-26] MEDS: IPRATROPIUM/ALBUTEROL 0.5-3(2.5)MG/3ML NEB HHN SCH ×3 (01:42→15:37)
[2020-11-26 04:00] VITALS: BP 145/63
[2020-11-26] MEDS: SODIUM CHLORIDE 0.9% INJ 3ML FLUSH IVF SCH ×3 (05:42→22:59)
[2020-11-26] MEDS: LACTULOSE 20G/30ML UDC PO SCH ×3 (05:42→22:59)
[2020-11-26] MEDS: DEXT 5%/0.45% NACL KCL 10MEQ/L 1,000 ML IV SCH (05:42)
[2020-11-26 05:52] LABS: INR 1.2; PROTHROMBIN TIME 12.4 sec (9.6-11.0)
[2020-11-26 06:18] LABS: HEMATOCRIT 24.5 % (42.0-52.0); HEMOGLOBIN 7.8 g/dL (14.0-18.0); MEAN CORPUSCULAR HEMOGLOBIN 26.4 pg (28.0-32.0); MEAN CORPUSCULAR VOLUME 82.5 fL (80.0-94.0); PLATELET 284 x1000/uL (130-400); RED BLOOD CELL COUNT 2.97 mill/uL (4.7-6.1); RED CELL DISTRIBUTION WIDTH 16.2 % (11.6-14.6)
[2020-11-26 06:20] LABS: CHLORIDE 109 mEq/L (98-107)
[2020-11-26 06:30] LABS: FERRITIN 880 ng/mL (22-322); PROSTRATE SPECIFIC AG TOTAL 0.81 ng/mL (0.0-4.0)
[2020-11-26 06:39] LABS: TOTAL IRON BINDING CAPACITY 180 ug/dL (250-450)
[2020-11-26 06:46] LABS: VITAMIN B12 SERUM >2000 pg/mL pg/mL (211-911)
[2020-11-26 08:00] VITALS: BP 134/57
[2020-11-26] MEDS ORDERED: CEFAZOLIN 1000MG PREMIX 50 ML IV SCH (08:00)
[2020-11-26] MEDS: HYDRALAZINE HCL 25MG TABLET PO SCH ×2 (09:40→22:58)
[2020-11-26] MEDS: METOPROLOL TARTRATE 50MG TABLET PO SCH ×2 (09:41→22:58)
[2020-11-26] MEDS: FAMOTIDINE 20MG/2ML VIAL IV SCH ×2 (09:41→22:57)
[2020-11-26] MEDS ORDERED: POTASSIUM CHLORIDE INJ 40 MEQ in DEXT 5% WATER 500 ML IV NR (11:00)
[2020-11-26] MEDS ORDERED: MIDAZOLAM HCL 5 MG/5 ML VIAL IV PRN (11:21)
[2020-11-26] MEDS ORDERED: MIDAZOLAM HCL 5 MG/5 ML VIAL ONE ×2 (11:27→12:03)
[2020-11-26] MEDS ORDERED: MAGNESIUM 2 G PREMIX 50 ML IV NR (13:30)
[2020-11-26 16:00] VITALS: BP 139/60
[2020-11-26 20:00] VITALS: BP 148/74
[2020-11-26] MEDS: ACETAMINOPHEN 325MG TABLET PO PRN (22:59)
[2020-11-27] VITALS: BP 125/62
[2020-11-27 04:00] VITALS: BP 119/67
[2020-11-27] MEDS: LACTULOSE 20G/30ML UDC PO SCH ×3 (05:14→22:00)
[2020-11-27] MEDS: SODIUM CHLORIDE 0.9% INJ 3ML FLUSH IVF SCH ×2 (05:14→14:40)
[2020-11-27] MEDS: DEXT 5%/0.45% NACL KCL 10MEQ/L 1,000 ML IV SCH (05:14)
[2020-11-27 08:00] VITALS: BP 120/55
[2020-11-27 08:10] LABS: PHOSPHORUS 2.1 mg/dL (2.5-4.9)
[2020-11-27 09:07] LABS: FOLATE HEMATOCRIT 24.9 % (37.5-51.0)
[2020-11-27] MEDS: HYDRALAZINE HCL 25MG TABLET PO SCH (09:19)
[2020-11-27] MEDS: METOPROLOL TARTRATE 50MG TABLET PO SCH (09:20)
[2020-11-27] MEDS: FAMOTIDINE 20MG/2ML VIAL IV SCH (09:20)
[2020-11-27] MEDS: THIAMINE HCL 100MG TABLET PO SCH (09:20)
[2020-11-27] MEDS: FOLIC ACID 1MG TABLET PO SCH (09:20)
[2020-11-27] MEDS: IPRATROPIUM/ALBUTEROL 0.5-3(2.5)MG/3ML NEB HHN SCH ×3 (09:36→21:45)
[2020-11-27] MEDS ORDERED: POTASSIUM PHOS,M-BASIC-D-BASIC 20 MMOL in DEXT 5% WATER 243.3333 ML IV SCH (11:30)
[2020-11-27 12:00] VITALS: BP 117/60
[2020-11-27 15:09] LABS: FOLATE RBC 1446 ng/mL (>498)
[2020-11-27 16:00] VITALS: BP 145/70
[2020-11-27] MEDS ORDERED: POTASSIUM CHLORIDE 20MEQ/PACKET PO NR (16:45)
[2020-11-27] MEDS: ACETAMINOPHEN 325MG TABLET PO PRN (17:56)
[2020-11-27 20:00] VITALS: BP 140/56
[2020-11-28] VITALS: BP 143/69
[2020-11-28] MEDS: HYDRALAZINE HCL 25MG TABLET PO SCH ×2 (00:31→09:38)
[2020-11-28] MEDS: METOPROLOL TARTRATE 50MG TABLET PO SCH ×2 (00:31→09:37)
[2020-11-28] MEDS: FAMOTIDINE 20MG/2ML VIAL IV SCH ×2 (00:31→09:37)
[2020-11-28] MEDS: SODIUM CHLORIDE 0.9% INJ 3ML FLUSH IVF SCH ×3 (00:32→14:53)
[2020-11-28] MEDS: IPRATROPIUM/ALBUTEROL 0.5-3(2.5)MG/3ML NEB HHN SCH ×3 (01:38→14:30)
[2020-11-28] MEDS: LACTULOSE 20G/30ML UDC PO SCH (06:00)
[2020-11-28] MEDS: DEXT 5%/0.45% NACL KCL 10MEQ/L 1,000 ML IV SCH (06:49)
[2020-11-28 08:00] VITALS: BP 170/87
[2020-11-28] MEDS: THIAMINE HCL 100MG TABLET PO SCH (09:37)
[2020-11-28] MEDS: FOLIC ACID 1MG TABLET PO SCH (09:37)
[2020-11-28 10:46] LABS: BASOPHILS % 0.3 % (0.0-2.0); EOSINOPHILS % 0.2 % (0.0-5.0); HEMOGLOBIN. 7.4 g/dL (14.0-18.0); LYMPHOCYTES % 7.7 % (20.0-50.0); MEAN CORPUSCULAR HEMOGLOBIN 26.6 pg (28.0-32.0); MEAN CORPUSCULAR VOLUME 82.4 fL (80.0-94.0); MEAN PLATELET VOLUME 7.8 fl (7.4-10.4); MONOCYTES % 8.2 % (2.0-8.0); NEUTROPHILS % 83.6 % (40.0-76.0); PLATELET 383 x1000/uL (130-400); RED BLOOD CELL COUNT 2.79 mill/uL (4.7-6.1); RED CELL DISTRIBUTION WIDTH 16.1 % (11.6-14.6)
[2020-11-28 10:54] LABS: CHLORIDE 110 mEq/L (98-107)
[2020-11-28 12:00] VITALS: BP 117/58
[2020-11-28 16:00] VITALS: BP 128/56
[2020-11-28 17:19] VITALS: BP 117/58
== END 2020-11-28 19:33 | DRG 374 ==
LOC: 6EST 20:30
PROVIDERS: ADMIT Internal Medicine; ATTEND Internal Medicine
PROC: 0DB58ZX Excision of Esophagus, Via Natural or Artificial Opening Endoscopic, Diagnostic (ICD-10-PCS; principal; 2020-11-26)
PROC: 0DH63UZ Insertion of Feeding Device into Stomach, Percutaneous Approach (ICD-10-PCS; 2020-11-26)
DX: C15.9 Malignant neoplasm of esophagus, unspecified (principal); E43 Unspecified severe protein-calorie malnutrition; N13.8 Other obstructive and reflux uropathy; L97.909 Non-pressure chronic ulcer of unspecified part of unspecified lower leg with unspecified severity; R13.10 Dysphagia, unspecified; R62.7 Adult failure to thrive; D64.9 Anemia, unspecified; G40.909 Epilepsy, unspecified, not intractable, without status epilepticus; I10 Essential (primary) hypertension; K56.41 Fecal impaction; E05.90 Thyrotoxicosis, unspecified without thyrotoxic crisis or storm; Y84.4 Aspiration of fluid as the cause of abnormal reaction of the patient, or of later complication, without mention of misadventure at the time of the procedure; L89.156 Pressure-induced deep tissue damage of sacral region; I87.2 Venous insufficiency (chronic) (peripheral); F03.90 Unspecified dementia, unspecified severity, without behavioral disturbance, psychotic disturbance, mood disturbance, and anxiety; Z20.822 Contact with and (suspected) exposure to COVID-19; N32.0 Bladder-neck obstruction; I73.9 Peripheral vascular disease, unspecified; N40.1 Benign prostatic hyperplasia with lower urinary tract symptoms; K21.9 Gastro-esophageal reflux disease without esophagitis; M62.50 Muscle wasting and atrophy, not elsewhere classified, unspecified site; Z87.11 Personal history of peptic ulcer disease; Z79.01 Long term (current) use of anticoagulants; Z86.711 Personal history of pulmonary embolism; Z68.20 Body mass index [BMI] 20.0-20.9, adult
CPT/HCPCS: 36415; 70490; 71250; 74018; 80048; 80051; 80053; 82607; 82728; 82747; 83540; 83550; 83735; 84100; 84153; 84439; 84443; 85014; 85025; 85027; 87426; 88305; 88312; 88313; 92610; 97162; J0360; J0690; J1650; J2250; J3475; J3480; J3490; J7060; A4315; G0103

== ENCOUNTER 2020-12-17 05:35 | Inpatient (IN) | payer MEDICARE, MEDICAID ==
[~2020-12-17] VITALS: Ht 185.4 cm; Wt 75.8 kg
[2020-12-17 06:13] LABS: BASOPHILS % 0.7 % (0.0-2.0); EOSINOPHILS % 1.3 % (0.0-5.0); HEMOGLOBIN. 8.6 g/dL (14.0-18.0); LYMPHOCYTES % 23.8 % (20.0-50.0); MEAN CORPUSCULAR HEMOGLOBIN 26.6 pg (28.0-32.0); MEAN CORPUSCULAR VOLUME 83.5 fL (80.0-94.0); MEAN PLATELET VOLUME 7.1 fl (7.4-10.4); MONOCYTES % 11.1 % (2.0-8.0); NEUTROPHILS % 63.1 % (40.0-76.0); PLATELET 557 x1000/uL (130-400); RED BLOOD CELL COUNT 3.24 mill/uL (4.7-6.1); RED CELL DISTRIBUTION WIDTH 17.3 % (11.6-14.6)
[2020-12-17 06:16] LABS: CHLORIDE 104 mEq/L (98-107)
[2020-12-17 06:19] LABS: INR 1.1; PROTHROMBIN TIME 11.9 sec (9.6-11.0)
[2020-12-17] MEDS ORDERED: LORAZEPAM 2MG/ML CPJ IV PRN (14:15)
[2020-12-17] MEDS ORDERED: HYDROCODONE/ACETAMINOPHEN 5/325MG TABLET PO PRN (14:15)
[2020-12-17] MEDS ORDERED: GUAIFENESIN 200MG/10ML SUGAR FREE UDC PO PRN (14:15)
[2020-12-17] MEDS ORDERED: MAGNESIUM/ALUMINUM HYDROXIDE/SIMETHICONE 30ML UDC PO PRN (14:15)
[2020-12-17] MEDS ORDERED: DOCUSATE SODIUM 100MG CAPSULE PO PRN (14:15)
[2020-12-17] MEDS ORDERED: DIPHENHYDRAMINE 50MG/ML VIAL IV PRN (14:15)
[2020-12-17] MEDS ORDERED: IPRATROPIUM/ALBUTEROL 0.5-3(2.5)MG/3ML NEB NEB PRN (14:15)
[2020-12-17] MEDS ORDERED: ACETAMINOPHEN 325MG TABLET PO PRN (14:15)
[2020-12-17] MEDS ORDERED: NA PHOS,M-B/NA PHOS,DI-BA ENEMA 118ML PR PRN (14:15)
[2020-12-17] MEDS ORDERED: ONDANSETRON HCL 4MG/2ML INJ IV PRN (14:15)
[2020-12-17] MEDS ORDERED: MORPHINE SULFATE 2 MG/ML CPJ (NOT FOR IM USE) IV PRN (14:15)
[2020-12-17] MEDS: DEXT 5%/0.45% NACL 1000ML 1,000 ML IV SCH (14:26)
[2020-12-17] MEDS ORDERED: NALOXONE HCL 0.4MG/ML VIAL IV PRN (14:30)
[2020-12-17] MEDS ORDERED: LIDOCAINE HCL 1% 20ML VIAL (Pyxis) INJ ONE (16:13)
[2020-12-17] MEDS ORDERED: IOHEXOL-300 50 ML BOTTLE IV ONE (16:13)
[2020-12-17] MEDS ORDERED: LIDOCAINE HCL 2% JELLY 5ML ONE (16:13)
[2020-12-17 20:02] LABS: CHLORIDE 106 mEq/L (98-107)
[2020-12-17] MEDS: ENOXAPARIN 40MG/0.4ML SYR SUBCUT SCH ×2 (20:59→21:02)
[2020-12-18] MEDS: CLONIDINE 0.1MG TABLET PO PRN (00:40)
[2020-12-18] MEDS: DEXT 5%/0.45% NACL 1000ML 1,000 ML IV SCH ×2 (03:35→15:07)
[2020-12-18 04:25] VITALS: BP 145/79
[2020-12-18] MEDS ORDERED: THIA50TA12 GT (05:50)
[2020-12-18] MEDS ORDERED: FOLI-43 GT (05:51)
[2020-12-18] MEDS ORDERED: ASCO100T12 GT (05:52)
[2020-12-18] MEDS ORDERED: HYDR-4134 GT (05:53)
[2020-12-18] MEDS ORDERED: DIPH25CA83 GT (05:55)
[2020-12-18] MEDS ORDERED: GUAI5SYR3 GT (05:56)
[2020-12-18 07:36] LABS: BASOPHILS % 0.7 % (0.0-2.0); EOSINOPHILS % 0.7 % (0.0-5.0); HEMATOCRIT. 22.5 % (42.0-52.0); HEMOGLOBIN. 7.4 g/dL (14.0-18.0); MEAN CORPUSCULAR HEMOGLOBIN 26.9 pg (28.0-32.0); MEAN CORPUSCULAR VOLUME 81.3 fL (80.0-94.0); MEAN PLATELET VOLUME 6.9 fl (7.4-10.4); MONOCYTES % 13.2 % (2.0-8.0); NEUTROPHILS % 66.4 % (40.0-76.0); PLATELET 530 x1000/uL (130-400); RED BLOOD CELL COUNT 2.77 mill/uL (4.7-6.1); RED CELL DISTRIBUTION WIDTH 17.1 % (11.6-14.6)
[2020-12-18 08:00] VITALS: BP 151/90
[2020-12-18 08:04] LABS: CHLORIDE 106 mEq/L (98-107)
[2020-12-18 08:11] LABS: LDL CHOLESTEROL 61 mg/dL (5-100)
[2020-12-18 08:13] LABS: HDL CHOLESTEROL 49 mg/dL (40-59)
[2020-12-18] MEDS: ASPIRIN 81MG EC TABLET PO SCH (08:41)
[2020-12-18 12:00] VITALS: BP 142/72
[2020-12-18 16:00] VITALS: BP 152/70
[2020-12-18 20:00] VITALS: BP 153/73
[2020-12-19] VITALS (7 sets, daily range): BP systolic 124–170; BP diastolic 63–79
[2020-12-19] MEDS: DEXT 5%/0.45% NACL 1000ML 1,000 ML IV SCH (06:02)
[2020-12-19 07:17] LABS: BASOPHILS % 0.7 % (0.0-2.0); HEMATOCRIT. 24.1 % (42.0-52.0); HEMOGLOBIN. 7.7 g/dL (14.0-18.0); LYMPHOCYTES % 19.8 % (20.0-50.0); MEAN CORPUSCULAR HEMOGLOBIN 26.7 pg (28.0-32.0); MEAN CORPUSCULAR VOLUME 83.8 fL (80.0-94.0); MEAN PLATELET VOLUME 7.1 fl (7.4-10.4); MONOCYTES % 14.9 % (2.0-8.0); NEUTROPHILS % 62.6 % (40.0-76.0); PLATELET 486 x1000/uL (130-400); RED BLOOD CELL COUNT 2.87 mill/uL (4.7-6.1); RED CELL DISTRIBUTION WIDTH 16.7 % (11.6-14.6)
[2020-12-19 07:34] LABS: CHLORIDE 107 mEq/L (98-107)
[2020-12-19] MEDS: ASPIRIN 81MG EC TABLET PO SCH (08:16)
[2020-12-19] MEDS: CLONIDINE 0.1MG TABLET PO PRN (09:14)
[2020-12-19] MEDS: ENOXAPARIN 40MG/0.4ML SYR SUBCUT SCH (16:10)
== END 2020-12-19 20:13 | DRG 394 ==
LOC: ER 05:35 → MICUSO 13:30 → 7EST 12-18 02:13
PROVIDERS: ADMIT Internal Medicine; ATTEND Internal Medicine
PROC: 0DP6XUZ Removal of Feeding Device from Stomach, External Approach (ICD-10-PCS; principal; 2020-12-17)
PROC: 0DH63UZ Insertion of Feeding Device into Stomach, Percutaneous Approach (ICD-10-PCS; 2020-12-17)
DX: K94.23 Gastrostomy malfunction (principal); C15.9 Malignant neoplasm of esophagus, unspecified; I13.0 Hypertensive heart and chronic kidney disease with heart failure and stage 1 through stage 4 chronic kidney disease, or unspecified chronic kidney disease; N13.8 Other obstructive and reflux uropathy; E44.0 Moderate protein-calorie malnutrition; R64 Cachexia; D64.9 Anemia, unspecified; E05.90 Thyrotoxicosis, unspecified without thyrotoxic crisis or storm; E86.0 Dehydration; F03.90 Unspecified dementia, unspecified severity, without behavioral disturbance, psychotic disturbance, mood disturbance, and anxiety; I25.10 Atherosclerotic heart disease of native coronary artery without angina pectoris; I50.9 Heart failure, unspecified; I87.2 Venous insufficiency (chronic) (peripheral); J44.9 Chronic obstructive pulmonary disease, unspecified; Z20.822 Contact with and (suspected) exposure to COVID-19; K56.41 Fecal impaction; N18.9 Chronic kidney disease, unspecified; F41.9 Anxiety disorder, unspecified; L89.156 Pressure-induced deep tissue damage of sacral region; I73.9 Peripheral vascular disease, unspecified; N40.1 Benign prostatic hyperplasia with lower urinary tract symptoms; R13.10 Dysphagia, unspecified; Z79.01 Long term (current) use of anticoagulants; Z86.711 Personal history of pulmonary embolism; Z79.1 Long term (current) use of non-steroidal anti-inflammatories (NSAID); Z79.899 Other long term (current) drug therapy; Z79.82 Long term (current) use of aspirin; Z68.22 Body mass index [BMI] 22.0-22.9, adult; Z79.02 Long term (current) use of antithrombotics/antiplatelets
CPT/HCPCS: 36415; 49450; 71045; 80048; 80053; 80061; 82040; 84134; 84439; 84443; 84484; 85025; 87426; 93923; 99285; C1769; C9803; J1650; J3490; L8514; Q9967; U0003; U0005

== ENCOUNTER 2021-01-15 14:34 | Inpatient (IN) | payer MEDICARE, MEDICAID ==
[~2021-01-15] VITALS: Ht 177.8 cm; Wt 69.9 kg
[~2021-01-15 14:34] MED LIST changes: -ALBU4TAB6 INH; -AMLO10TA80 PO; -APIX5TAB MT; -ASCO-339 MT; +ASCO100T12 GT; -ASPI-1497 MT; -ATOR20TA PO; -CILO100T PO; -CLON-457 PO; -CRAN250C PO; +DIPH25CA83 GT; -DOCU-138 MT; -FAMO20TA8 PO; -FERR325T6 MT; +FOLI-43 GT; -GABA-529 MT; +GUAI5SYR3 GT; +HYDR-4134 GT; -HYDR-4135 PO; -LISI20TA31 PO; -MELA1LIQ MT; -METO-396 PO; -NITR0.4T49 SL; -ONDA4TAB11 PO; +THIA50TA12 GT
[2021-01-15] MEDS ORDERED: SODIUM CHLORIDE 0.9% 1,000 ML IV ONE (15:00)
[2021-01-15 15:37] LABS: BASOPHILS % 0.6 % (0.0-2.0); CHLORIDE 110 mEq/L (98-107); EOSINOPHILS % 0.9 % (0.0-5.0); HEMATOCRIT. 28.8 % (42.0-52.0); HEMOGLOBIN. 9.1 g/dL (14.0-18.0); LYMPHOCYTES % 18.3 % (20.0-50.0); MEAN CORPUSCULAR HEMOGLOBIN 25.3 pg (28.0-32.0); MEAN CORPUSCULAR VOLUME 80.4 fL (80.0-94.0); NEUTROPHILS % 69.2 % (40.0-76.0); PLATELET 398 x1000/uL (130-400); RED BLOOD CELL COUNT 3.58 mill/uL (4.7-6.1); RED CELL DISTRIBUTION WIDTH 17.4 % (11.6-14.6)
[2021-01-15 15:42] LABS: INR 1.1; PROTHROMBIN TIME 11.6 sec (9.6-11.0)
[2021-01-15] MEDS ORDERED: DIPHENHYDRAMINE 50MG/ML VIAL IV PRN (17:00)
[2021-01-15] MEDS ORDERED: MORPHINE SULFATE 2 MG/ML CPJ (NOT FOR IM USE) IV PRN (17:00)
[2021-01-15] MEDS ORDERED: ONDANSETRON HCL 4MG/2ML INJ IV PRN (17:00)
[2021-01-15] MEDS ORDERED: IPRATROPIUM/ALBUTEROL 0.5-3(2.5)MG/3ML NEB HHN PRN (17:00)
[2021-01-15] MEDS ORDERED: LORAZEPAM 2MG/ML CPJ IV PRN (17:00)
[2021-01-15] MEDS ORDERED: ACETAMINOPHEN 325MG TABLET PO PRN (17:00)
[2021-01-15] MEDS ORDERED: DOCUSATE SODIUM 100MG CAPSULE PO PRN (17:00)
[2021-01-15] MEDS ORDERED: GUAIFENESIN 200MG/10ML SUGAR FREE UDC PO PRN (17:00)
[2021-01-15] MEDS ORDERED: MAGNESIUM/ALUMINUM HYDROXIDE/SIMETHICONE 30ML UDC PO PRN (17:00)
[2021-01-15] MEDS ORDERED: HYDROCODONE/ACETAMINOPHEN 5/325MG TABLET PO PRN (17:00)
[2021-01-15] MEDS: SODIUM CHLORIDE 0.45% 1,000 ML IV SCH (17:19)
[2021-01-15] MEDS: DEXT 5%/0.45% NACL 1000ML 1,000 ML IV SCH (18:26)
[2021-01-15] MEDS: ENOXAPARIN 40MG/0.4ML SYR SUBCUT SCH (18:31)
[2021-01-15 22:15] VITALS: BP 145/79
[2021-01-15 22:30] VITALS: BP 145/79
[2021-01-16] VITALS (11 sets, daily range): BP systolic 112–178; BP diastolic 82–95
[2021-01-16] MEDS: SODIUM CHLORIDE 0.9% INJ 3ML FLUSH IVF SCH ×4 (01:14→21:26)
[2021-01-16] MEDS: ENOXAPARIN 40MG/0.4ML SYR SUBCUT SCH (08:56)
[2021-01-16 09:23] LABS: CHLORIDE 111 mEq/L (98-107)
[2021-01-16 10:03] LABS: BASOPHILS % 0.8 % (0.0-2.0); EOSINOPHILS % 2.3 % (0.0-5.0); LYMPHOCYTES % 25.7 % (20.0-50.0); MEAN CORPUSCULAR HEMOGLOBIN 26.1 pg (28.0-32.0); MEAN CORPUSCULAR VOLUME 83.4 fL (80.0-94.0); MEAN PLATELET VOLUME 8.4 fl (7.4-10.4); MONOCYTES % 10.1 % (2.0-8.0); NEUTROPHILS % 61.1 % (40.0-76.0); PLATELET 307 x1000/uL (130-400); RED BLOOD CELL COUNT 2.68 mill/uL (4.7-6.1); RED CELL DISTRIBUTION WIDTH 17.5 % (11.6-14.6)
[2021-01-16 10:12] LABS: HEMATOCRIT. 22.4 % (42.0-52.0)
[2021-01-16] MEDS: DEXT 5%/0.45% NACL 1000ML 1,000 ML IV SCH (14:59)
[2021-01-16] MEDS: HYDRALAZINE 20MG/ML VIAL IV PRN (16:57)
[2021-01-16] MEDS: PANTOPRAZOLE SODIUM 40 MG/VIAL IV SCH (18:51)
[2021-01-16 23:48] LABS: HEMATOCRIT 31.4 % (42.0-52.0)
[2021-01-17] VITALS: BP 183/90
[2021-01-17] MEDS: HYDRALAZINE 20MG/ML VIAL IV PRN (00:51)
[2021-01-17] MEDS: SODIUM CHLORIDE 0.45% 1,000 ML IV SCH (02:20)
[2021-01-17 04:00] VITALS: BP 165/74
[2021-01-17] MEDS: SODIUM CHLORIDE 0.9% INJ 3ML FLUSH IVF SCH ×3 (05:35→21:45)
[2021-01-17 07:48] LABS: BASOPHILS % 0.5 % (0.0-2.0); HEMATOCRIT. 27.4 % (42.0-52.0); HEMOGLOBIN. 8.9 g/dL (14.0-18.0); LYMPHOCYTES % 9.6 % (20.0-50.0); MEAN CORPUSCULAR HEMOGLOBIN 24.9 pg (28.0-32.0); MEAN CORPUSCULAR VOLUME 76.9 fL (80.0-94.0); MEAN PLATELET VOLUME 7.6 fl (7.4-10.4); MONOCYTES % 6.8 % (2.0-8.0); NEUTROPHILS % 83.1 % (40.0-76.0); PLATELET 395 x1000/uL (130-400); RED BLOOD CELL COUNT 3.57 mill/uL (4.7-6.1); RED CELL DISTRIBUTION WIDTH 17.7 % (11.6-14.6)
[2021-01-17 07:59] LABS: CHLORIDE 109 mEq/L (98-107)
[2021-01-17 08:00] VITALS: BP 153/85
[2021-01-17] MEDS: PANTOPRAZOLE SODIUM 40 MG/VIAL IV SCH (08:41)
[2021-01-17] MEDS: DEXT 5%/0.45% NACL 1000ML 1,000 ML IV SCH ×2 (10:00→14:51)
[2021-01-17 12:00] VITALS: BP 146/81
[2021-01-17 16:00] VITALS: BP 151/81
[2021-01-17 20:00] VITALS: BP 176/96
[2021-01-17] MEDS: IPRATROPIUM/ALBUTEROL 0.5-3(2.5)MG/3ML NEB HHN SCH (21:33)
[2021-01-18] VITALS: BP 144/75
[2021-01-18] MEDS: LEVOFLOXACIN 500MG PREMIX 100 ML IV SCH ×2 (00:13→23:43)
[2021-01-18] MEDS: IPRATROPIUM/ALBUTEROL 0.5-3(2.5)MG/3ML NEB HHN SCH ×6 (00:29→21:51)
[2021-01-18 04:00] VITALS: BP 138/70
[2021-01-18 06:01] LABS: CHLORIDE 108 mEq/L (98-107)
[2021-01-18 06:23] LABS: BASOPHILS % 0.2 % (0.0-2.0); EOSINOPHILS % 0.7 % (0.0-5.0); HEMATOCRIT. 32.6 % (42.0-52.0); LYMPHOCYTES % 17.3 % (20.0-50.0); MEAN CORPUSCULAR HEMOGLOBIN 25.6 pg (28.0-32.0); MEAN CORPUSCULAR VOLUME 83.3 fL (80.0-94.0); MEAN PLATELET VOLUME 8.3 fl (7.4-10.4); MONOCYTES % 12.6 % (2.0-8.0); NEUTROPHILS % 69.2 % (40.0-76.0); PLATELET 284 x1000/uL (130-400); RED BLOOD CELL COUNT 3.92 mill/uL (4.7-6.1); RED CELL DISTRIBUTION WIDTH 18.1 % (11.6-14.6)
[2021-01-18] MEDS: SODIUM CHLORIDE 0.9% INJ 3ML FLUSH IVF SCH ×3 (06:39→22:08)
[2021-01-18 08:00] VITALS: BP 100/74
[2021-01-18] MEDS: PANTOPRAZOLE SODIUM 40 MG/VIAL IV SCH (08:51)
[2021-01-18 12:00] VITALS: BP 137/80
[2021-01-18 16:00] VITALS: BP 194/91
[2021-01-18 20:30] VITALS: BP 173/85
[2021-01-18] MEDS: HYDRALAZINE 20MG/ML VIAL IV PRN (22:07)
[2021-01-19] VITALS (7 sets, daily range): BP systolic 153–171; BP diastolic 74–94
[2021-01-19] MEDS: IPRATROPIUM/ALBUTEROL 0.5-3(2.5)MG/3ML NEB HHN SCH ×6 (01:33→20:31)
[2021-01-19] MEDS: DEXT 5%/0.45% NACL 1000ML 1,000 ML IV SCH ×2 (02:55→21:14)
[2021-01-19] MEDS: SODIUM CHLORIDE 0.9% INJ 3ML FLUSH IVF SCH ×3 (06:00→21:14)
[2021-01-19 06:48] LABS: BASOPHILS % 0.4 % (0.0-2.0); EOSINOPHILS % 0.4 % (0.0-5.0); HEMATOCRIT. 27.6 % (42.0-52.0); HEMOGLOBIN. 9.1 g/dL (14.0-18.0); LYMPHOCYTES % 18.4 % (20.0-50.0); MEAN CORPUSCULAR HEMOGLOBIN 25.5 pg (28.0-32.0); MEAN CORPUSCULAR VOLUME 77.3 fL (80.0-94.0); MEAN PLATELET VOLUME 7.7 fl (7.4-10.4); MONOCYTES % 12.9 % (2.0-8.0); NEUTROPHILS % 67.9 % (40.0-76.0); PLATELET 348 x1000/uL (130-400); RED BLOOD CELL COUNT 3.57 mill/uL (4.7-6.1); RED CELL DISTRIBUTION WIDTH 17.2 % (11.6-14.6)
[2021-01-19 07:04] LABS: CHLORIDE 107 mEq/L (98-107)
[2021-01-19] MEDS: PANTOPRAZOLE SODIUM 40 MG/VIAL IV SCH (09:37)
[2021-01-19] MEDS: HYDRALAZINE 20MG/ML VIAL IV PRN ×2 (13:44→21:14)
[2021-01-19] MEDS ORDERED: NALOXONE HCL 0.4MG/ML VIAL IV PRN (15:15)
[2021-01-20] VITALS (7 sets, daily range): BP systolic 98–155; BP diastolic 44–96
[2021-01-20] MEDS: LEVOFLOXACIN 500MG PREMIX 100 ML IV SCH ×2 (00:14→20:51)
[2021-01-20] MEDS: IPRATROPIUM/ALBUTEROL 0.5-3(2.5)MG/3ML NEB HHN SCH ×6 (00:38→20:16)
[2021-01-20 06:07] LABS: BASOPHILS % 0.2 % (0.0-2.0); EOSINOPHILS % 0.3 % (0.0-5.0); HEMATOCRIT. 29.2 % (42.0-52.0); HEMOGLOBIN. 9.3 g/dL (14.0-18.0); LYMPHOCYTES % 16.6 % (20.0-50.0); MEAN CORPUSCULAR HEMOGLOBIN 25.1 pg (28.0-32.0); MEAN CORPUSCULAR VOLUME 78.6 fL (80.0-94.0); MEAN PLATELET VOLUME 7.8 fl (7.4-10.4); MONOCYTES % 12.5 % (2.0-8.0); NEUTROPHILS % 70.4 % (40.0-76.0); PLATELET 336 x1000/uL (130-400); RED BLOOD CELL COUNT 3.72 mill/uL (4.7-6.1); RED CELL DISTRIBUTION WIDTH 17.6 % (11.6-14.6)
[2021-01-20 06:15] LABS: INR 1.2
[2021-01-20 06:29] LABS: CHLORIDE 107 mEq/L (98-107)
[2021-01-20] MEDS: SODIUM CHLORIDE 0.9% INJ 3ML FLUSH IVF SCH ×3 (06:49→20:51)
[2021-01-20] MEDS: PANTOPRAZOLE SODIUM 40 MG/VIAL IV SCH (08:19)
[2021-01-20] MEDS ORDERED: POTASSIUM CHLORIDE INJ 40 MEQ in DEXT 5% WATER 250 ML IV SCH (11:00)
[2021-01-20] MEDS ORDERED: KCL 20MEQ/100ML PREMIX 100 ML IV ONE (17:00)
[2021-01-20] MEDS: DEXT 5%/0.45% NACL 1000ML 1,000 ML IV SCH (18:06)
[2021-01-21] VITALS: BP 179/99
[2021-01-21] MEDS: IPRATROPIUM/ALBUTEROL 0.5-3(2.5)MG/3ML NEB HHN SCH ×6 (00:32→20:32)
[2021-01-21 04:00] VITALS: BP 170/78
[2021-01-21] MEDS: CLONIDINE 0.1MG TABLET PO PRN (06:13)
[2021-01-21] MEDS: SODIUM CHLORIDE 0.9% INJ 3ML FLUSH IVF SCH ×3 (06:13→21:38)
[2021-01-21 07:04] LABS: CHLORIDE 109 mEq/L (98-107)
[2021-01-21 07:09] LABS: BASOPHILS % 0.4 % (0.0-2.0); EOSINOPHILS % 0.6 % (0.0-5.0); HEMATOCRIT. 28.7 % (42.0-52.0); HEMOGLOBIN. 9.2 g/dL (14.0-18.0); LYMPHOCYTES % 19.8 % (20.0-50.0); MEAN CORPUSCULAR HEMOGLOBIN 25.2 pg (28.0-32.0); MEAN CORPUSCULAR VOLUME 78.3 fL (80.0-94.0); MEAN PLATELET VOLUME 7.6 fl (7.4-10.4); MONOCYTES % 12.3 % (2.0-8.0); NEUTROPHILS % 66.9 % (40.0-76.0); PLATELET 348 x1000/uL (130-400); RED BLOOD CELL COUNT 3.66 mill/uL (4.7-6.1); RED CELL DISTRIBUTION WIDTH 17.9 % (11.6-14.6)
[2021-01-21 08:00] VITALS: BP 166/85
[2021-01-21] MEDS ORDERED: KCL 20MEQ/100ML PREMIX 100 ML IV NR (09:00)
[2021-01-21] MEDS: PANTOPRAZOLE SODIUM 40 MG/VIAL IV SCH (09:49)
[2021-01-21 12:00] VITALS: BP 163/88
[2021-01-21 16:00] VITALS: BP 163/85
[2021-01-21] MEDS: HYDRALAZINE 20MG/ML VIAL IV PRN (18:14)
[2021-01-21] MEDS: DEXT 5%/0.45% NACL 1000ML 1,000 ML IV SCH (18:16)
[2021-01-21 20:16] VITALS: BP 166/76
[2021-01-21] MEDS: LEVOFLOXACIN 500MG PREMIX 100 ML IV SCH (23:14)
[2021-01-22] VITALS: BP 176/67
[2021-01-22] MEDS: IPRATROPIUM/ALBUTEROL 0.5-3(2.5)MG/3ML NEB HHN SCH ×6 (00:40→21:30)
[2021-01-22] MEDS: HYDRALAZINE 20MG/ML VIAL IV PRN ×2 (00:44→21:39)
[2021-01-22 04:00] VITALS: BP 145/67
[2021-01-22] MEDS: SODIUM CHLORIDE 0.9% INJ 3ML FLUSH IVF SCH ×3 (05:28→20:52)
[2021-01-22 07:47] VITALS: BP 155/80
[2021-01-22] MEDS: PANTOPRAZOLE SODIUM 40 MG/VIAL IV SCH (09:00)
[2021-01-22 11:17] VITALS: BP 177/80
[2021-01-22 15:19] VITALS: BP 164/83
[2021-01-22 20:00] VITALS: BP 221/105
[2021-01-22] MEDS: DEXT 5%/0.45% NACL 1000ML 1,000 ML IV SCH (20:52)
[2021-01-23 00:18] VITALS: BP 146/75
[2021-01-23] MEDS: IPRATROPIUM/ALBUTEROL 0.5-3(2.5)MG/3ML NEB HHN SCH ×7 (00:43→22:08)
[2021-01-23] MEDS: ACETYLCYSTEINE 100MG/ML 10% VIAL 4ML INH SCH ×2 (01:50→16:18)
[2021-01-23 04:00] VITALS: BP 157/78
[2021-01-23] MEDS: DEXT 5%/0.45% NACL 1000ML 1,000 ML IV SCH (05:11)
[2021-01-23] MEDS: SODIUM CHLORIDE 0.9% INJ 3ML FLUSH IVF SCH ×3 (05:11→22:00)
[2021-01-23 07:26] LABS: CHLORIDE 104 mEq/L (98-107)
[2021-01-23 07:27] LABS: INR 1.2; PROTHROMBIN TIME 12.9 sec (9.6-11.0)
[2021-01-23 07:33] LABS: BASOPHILS % 0.5 % (0.0-2.0); EOSINOPHILS % 0.9 % (0.0-5.0); HEMATOCRIT. 30.4 % (42.0-52.0); HEMOGLOBIN. 9.3 g/dL (14.0-18.0); LYMPHOCYTES % 20.7 % (20.0-50.0); MEAN CORPUSCULAR HEMOGLOBIN 25.7 pg (28.0-32.0); MEAN CORPUSCULAR VOLUME 83.7 fL (80.0-94.0); MEAN PLATELET VOLUME 7.8 fl (7.4-10.4); MONOCYTES % 13.2 % (2.0-8.0); NEUTROPHILS % 64.7 % (40.0-76.0); PLATELET 273 x1000/uL (130-400); RED BLOOD CELL COUNT 3.63 mill/uL (4.7-6.1); RED CELL DISTRIBUTION WIDTH 17.8 % (11.6-14.6)
[2021-01-23 08:00] VITALS: BP 154/87
[2021-01-23] MEDS ORDERED: CEFAZOLIN 1000MG PREMIX 50 ML IV NR (08:00)
[2021-01-23] MEDS: PANTOPRAZOLE SODIUM 40 MG/VIAL IV SCH (09:55)
[2021-01-23 12:00] VITALS: BP 157/83
[2021-01-23] MEDS ORDERED: POTASSIUM CHLORIDE INJ 40 MEQ in DEXT 5% WATER 250 ML IV NR (13:00)
[2021-01-23] MEDS ORDERED: LIDOCAINE HCL 1% 20ML VIAL (Pyxis) INJ ONE (14:09)
[2021-01-23] MEDS ORDERED: LIDOCAINE HCL 2% JELLY 5ML ONE (14:09)
[2021-01-23] MEDS ORDERED: IOHEXOL-300 50 ML BOTTLE IV ONE (14:10)
[2021-01-23 16:00] VITALS: BP 162/84
[2021-01-23 20:00] VITALS: BP 169/118
[2021-01-23] MEDS: HYDRALAZINE 20MG/ML VIAL IV PRN (21:32)
[2021-01-24] VITALS: BP 157/84
[2021-01-24] MEDS: IPRATROPIUM/ALBUTEROL 0.5-3(2.5)MG/3ML NEB HHN SCH ×6 (01:50→20:19)
[2021-01-24] MEDS: ACETYLCYSTEINE 100MG/ML 10% VIAL 4ML INH SCH ×3 (01:50→16:08)
[2021-01-24] MEDS: DEXT 5%/0.45% NACL 1000ML 1,000 ML IV SCH ×2 (02:58→21:21)
[2021-01-24 04:00] VITALS: BP 173/107
[2021-01-24] MEDS: HYDRALAZINE 20MG/ML VIAL IV PRN ×3 (04:57→21:21)
[2021-01-24] MEDS: SODIUM CHLORIDE 0.9% INJ 3ML FLUSH IVF SCH ×3 (06:00→21:21)
[2021-01-24 08:20] VITALS: BP 145/88
[2021-01-24 08:25] LABS: CHLORIDE 105 mEq/L (98-107)
[2021-01-24 08:35] LABS: BASOPHILS % 0.6 % (0.0-2.0); EOSINOPHILS % 1.5 % (0.0-5.0); HEMATOCRIT. 29.8 % (42.0-52.0); HEMOGLOBIN. 9.6 g/dL (14.0-18.0); MEAN CORPUSCULAR HEMOGLOBIN 25.3 pg (28.0-32.0); MEAN CORPUSCULAR VOLUME 78.4 fL (80.0-94.0); MEAN PLATELET VOLUME 8.2 fl (7.4-10.4); MONOCYTES % 11.9 % (2.0-8.0); PLATELET 367 x1000/uL (130-400); RED CELL DISTRIBUTION WIDTH 17.4 % (11.6-14.6)
[2021-01-24] MEDS: PANTOPRAZOLE SODIUM 40 MG/VIAL IV SCH (09:03)
[2021-01-24 12:10] VITALS: BP 162/86
[2021-01-24 16:42] VITALS: BP 168/78
[2021-01-24 20:28] VITALS: BP 169/74
[2021-01-25 00:15] VITALS: BP 147/68
[2021-01-25] MEDS: ACETYLCYSTEINE 100MG/ML 10% VIAL 4ML INH SCH ×3 (00:43→15:50)
[2021-01-25] MEDS: IPRATROPIUM/ALBUTEROL 0.5-3(2.5)MG/3ML NEB HHN SCH ×7 (00:43→20:53)
[2021-01-25 04:00] VITALS: BP 182/82
[2021-01-25] MEDS: HYDRALAZINE 20MG/ML VIAL IV PRN ×2 (05:01→16:42)
[2021-01-25] MEDS: SODIUM CHLORIDE 0.9% INJ 3ML FLUSH IVF SCH ×3 (05:01→21:06)
[2021-01-25 06:08] LABS: BASOPHILS % 0.6 % (0.0-2.0); EOSINOPHILS % 0.7 % (0.0-5.0); HEMATOCRIT. 28.3 % (42.0-52.0); HEMOGLOBIN. 9.2 g/dL (14.0-18.0); LYMPHOCYTES % 12.5 % (20.0-50.0); MEAN CORPUSCULAR HEMOGLOBIN 25.5 pg (28.0-32.0); MEAN CORPUSCULAR VOLUME 78.4 fL (80.0-94.0); MEAN PLATELET VOLUME 7.9 fl (7.4-10.4); MONOCYTES % 9.5 % (2.0-8.0); NEUTROPHILS % 76.7 % (40.0-76.0); PLATELET 298 x1000/uL (130-400); RED BLOOD CELL COUNT 3.61 mill/uL (4.7-6.1); RED CELL DISTRIBUTION WIDTH 17.1 % (11.6-14.6)
[2021-01-25 06:26] LABS: CHLORIDE 104 mEq/L (98-107)
[2021-01-25 08:47] VITALS: BP 179/81
[2021-01-25] MEDS: PANTOPRAZOLE SODIUM 40 MG/VIAL IV SCH (09:30)
[2021-01-25] MEDS ORDERED: CEFAZOLIN 1000MG PREMIX 50 ML IV NR (10:30)
[2021-01-25 16:49] VITALS: BP 169/93
[2021-01-25 20:00] VITALS: BP 149/77
[2021-01-25] MEDS: DEXT 5%/0.45% NACL 1000ML 1,000 ML IV SCH (21:06)
[2021-01-26] MEDS: HYDRALAZINE 20MG/ML VIAL IV PRN ×2 (00:34→09:24)
[2021-01-26 00:37] VITALS: BP 179/76
[2021-01-26 04:00] VITALS: BP 165/70
[2021-01-26] MEDS: IPRATROPIUM/ALBUTEROL 0.5-3(2.5)MG/3ML NEB HHN SCH ×5 (04:20→21:46)
[2021-01-26] MEDS: SODIUM CHLORIDE 0.9% INJ 3ML FLUSH IVF SCH ×3 (05:34→22:00)
[2021-01-26 08:00] VITALS: BP 162/61
[2021-01-26] MEDS: ACETYLCYSTEINE 100MG/ML 10% VIAL 4ML INH SCH ×2 (08:11→16:21)
[2021-01-26] MEDS: PANTOPRAZOLE SODIUM 40 MG/VIAL IV SCH (09:23)
[2021-01-26 12:00] VITALS: BP 144/77
[2021-01-26] MEDS: DEXT 5%/0.45% NACL 1000ML 1,000 ML IV SCH (15:02)
[2021-01-26 16:00] VITALS: BP 134/74
[2021-01-26 20:00] VITALS: BP_SYST 152; BP_SYST 195; BP_DIAS 82; BP_DIAS 87
[2021-01-27] VITALS: BP_SYST 156; BP_SYST 168; BP_SYST 193; BP_DIAS 80; BP_DIAS 82; BP_DIAS 84
[2021-01-27] MEDS: ACETYLCYSTEINE 100MG/ML 10% VIAL 4ML INH SCH ×3 (01:29→16:59)
[2021-01-27] MEDS: IPRATROPIUM/ALBUTEROL 0.5-3(2.5)MG/3ML NEB HHN SCH ×6 (01:29→20:08)
[2021-01-27 04:30] VITALS: BP 150/78
[2021-01-27] MEDS: SODIUM CHLORIDE 0.9% INJ 3ML FLUSH IVF SCH ×3 (05:16→21:19)
[2021-01-27 07:01] LABS: CHLORIDE 104 mEq/L (98-107)
[2021-01-27 07:04] LABS: HEMATOCRIT. 28.8 % (42.0-52.0); HEMOGLOBIN. 9.4 g/dL (14.0-18.0); MEAN CORPUSCULAR HEMOGLOBIN 25.3 pg (28.0-32.0); MEAN CORPUSCULAR VOLUME 77.9 fL (80.0-94.0); MEAN PLATELET VOLUME 8.1 fl (7.4-10.4); PLATELET 264 x1000/uL (130-400); RED BLOOD CELL COUNT 3.69 mill/uL (4.7-6.1); RED CELL DISTRIBUTION WIDTH 17.6 % (11.6-14.6)
[2021-01-27 08:00] VITALS: BP 172/89
[2021-01-27] MEDS: PANTOPRAZOLE SODIUM 40 MG/VIAL IV SCH (09:01)
[2021-01-27] MEDS: HYDRALAZINE 20MG/ML VIAL IV PRN (09:01)
[2021-01-27] MEDS: DEXT 5%/0.45% NACL 1000ML 1,000 ML IV SCH (09:02)
[2021-01-27 12:00] VITALS: BP 177/85
[2021-01-27] MEDS ORDERED: POTASSIUM CHLORIDE INJ 40 MEQ in DEXT 5% WATER 250 ML IV NR (13:00)
[2021-01-27 16:00] VITALS: BP_SYST 155; BP_SYST 177; BP_DIAS 80; BP_DIAS 85
[2021-01-27 16:57] LABS: PLATELET ESTIMATE NORMAL
[2021-01-27 20:00] VITALS: BP 157/85
[2021-01-28] VITALS: BP 131/80
[2021-01-28] MEDS: ACETYLCYSTEINE 100MG/ML 10% VIAL 4ML INH SCH ×3 (00:38→15:50)
[2021-01-28] MEDS: IPRATROPIUM/ALBUTEROL 0.5-3(2.5)MG/3ML NEB HHN SCH ×6 (00:38→21:03)
[2021-01-28 04:00] VITALS: BP 180/93
[2021-01-28] MEDS: HYDRALAZINE 20MG/ML VIAL IV PRN ×2 (04:00→14:00)
[2021-01-28] MEDS: DEXT 5%/0.45% NACL 1000ML 1,000 ML IV SCH (06:00)
[2021-01-28] MEDS: SODIUM CHLORIDE 0.9% INJ 3ML FLUSH IVF SCH ×3 (06:00→21:50)
[2021-01-28 08:22] VITALS: BP 127/85
[2021-01-28 08:48] LABS: BASOPHILS % 0.8 % (0.0-2.0); EOSINOPHILS % 0.6 % (0.0-5.0); HEMATOCRIT. 29.4 % (42.0-52.0); HEMOGLOBIN. 9.4 g/dL (14.0-18.0); LYMPHOCYTES % 13.8 % (20.0-50.0); MEAN CORPUSCULAR HEMOGLOBIN 24.7 pg (28.0-32.0); MEAN CORPUSCULAR VOLUME 77.3 fL (80.0-94.0); MEAN PLATELET VOLUME 7.5 fl (7.4-10.4); MONOCYTES % 11.6 % (2.0-8.0); NEUTROPHILS % 73.2 % (40.0-76.0); PLATELET 265 x1000/uL (130-400); RED CELL DISTRIBUTION WIDTH 17.3 % (11.6-14.6)
[2021-01-28 09:01] LABS: CHLORIDE 106 mEq/L (98-107)
[2021-01-28] MEDS: PANTOPRAZOLE SODIUM 40 MG/VIAL IV SCH (09:04)
[2021-01-28] MEDS ORDERED: CEFAZOLIN 1000MG PREMIX 50 ML IV NR (09:53)
[2021-01-28] MEDS ORDERED: FENTANYL CITRATE/PF 50MCG/ML 2ML VIAL IV PRN (12:15)
[2021-01-28] MEDS ORDERED: MIDAZOLAM HCL 5 MG/5 ML VIAL IV PRN (12:16)
[2021-01-28] MEDS ORDERED: MIDAZOLAM HCL 5 MG/5 ML VIAL ONE (12:18)
[2021-01-28] MEDS ORDERED: FENTANYL CITRATE/PF 50MCG/ML 2ML VIAL ONE (12:18)
[2021-01-28] MEDS ORDERED: FENTANYL CITRATE/PF 50MCG/ML 2ML VIAL IV ONE (15:45)
[2021-01-28 17:00] VITALS: BP 154/83
[2021-01-28] MEDS ORDERED: POTASSIUM CHLORIDE 20MEQ TABLET SR PO NR (17:45)
[2021-01-28] MEDS: CLONIDINE 0.1MG TABLET PO PRN (17:59)
[2021-01-28 18:00] VITALS: BP 174/88
[2021-01-28 20:37] VITALS: BP 158/69
[2021-01-29 00:10] VITALS: BP 151/72
[2021-01-29] MEDS: IPRATROPIUM/ALBUTEROL 0.5-3(2.5)MG/3ML NEB HHN SCH ×6 (00:59→21:21)
[2021-01-29] MEDS: DEXT 5%/0.45% NACL 1000ML 1,000 ML IV SCH ×2 (01:48→22:08)
[2021-01-29 04:00] VITALS: BP 140/65
[2021-01-29] MEDS: SODIUM CHLORIDE 0.9% INJ 3ML FLUSH IVF SCH ×3 (06:00→22:08)
[2021-01-29 08:08] VITALS: BP 166/77
[2021-01-29 09:19] LABS: HEMATOCRIT. 28.9 % (42.0-52.0); HEMOGLOBIN. 9.1 g/dL (14.0-18.0); MEAN CORPUSCULAR HEMOGLOBIN 25.2 pg (28.0-32.0); MEAN CORPUSCULAR VOLUME 79.8 fL (80.0-94.0); MEAN PLATELET VOLUME 7.6 fl (7.4-10.4); PLATELET 245 x1000/uL (130-400); RED BLOOD CELL COUNT 3.62 mill/uL (4.7-6.1); RED CELL DISTRIBUTION WIDTH 17.8 % (11.6-14.6)
[2021-01-29 09:30] LABS: CHLORIDE 105 mEq/L (98-107)
[2021-01-29] MEDS: PANTOPRAZOLE SODIUM 40 MG/VIAL IV SCH (09:45)
[2021-01-29] MEDS: ASCORBIC ACID 500 MG TABLET PO SCH (09:46)
[2021-01-29] MEDS: FOLIC ACID 1MG TABLET PO SCH (09:46)
[2021-01-29] MEDS: ZINC SULFATE 220 MG ( 50 ) CAPSULE PO SCH (09:46)
[2021-01-29] MEDS: THIAMINE HCL 100MG TABLET PO SCH (09:46)
[2021-01-29] MEDS: HYDRALAZINE 20MG/ML VIAL IV PRN (09:54)
[2021-01-29 12:14] VITALS: BP 103/64
[2021-01-29 13:33] LABS: PLATELET ESTIMATE NORMAL
[2021-01-29 16:03] VITALS: BP 105/69
[2021-01-29] MEDS: METOCLOPRAMIDE HCL 10MG/2ML VIAL IV SCH (18:24)
[2021-01-29 20:56] VITALS: BP 146/80
[2021-01-30] VITALS (7 sets, daily range): BP systolic 138–179; BP diastolic 74–81
[2021-01-30] MEDS: METOCLOPRAMIDE HCL 10MG/2ML VIAL IV SCH ×4 (00:21→18:06)
[2021-01-30] MEDS: IPRATROPIUM/ALBUTEROL 0.5-3(2.5)MG/3ML NEB HHN SCH ×5 (00:56→15:22)
[2021-01-30] MEDS: HYDRALAZINE 20MG/ML VIAL IV PRN ×2 (05:29→19:02)
[2021-01-30] MEDS: SODIUM CHLORIDE 0.9% INJ 3ML FLUSH IVF SCH ×2 (06:00→14:03)
[2021-01-30] MEDS: THIAMINE HCL 100MG TABLET PO SCH (08:56)
[2021-01-30] MEDS: PANTOPRAZOLE SODIUM 40 MG/VIAL IV SCH (08:56)
[2021-01-30] MEDS: ZINC SULFATE 220 MG ( 50 ) CAPSULE PO SCH (08:57)
[2021-01-30] MEDS: FOLIC ACID 1MG TABLET PO SCH (08:57)
[2021-01-30] MEDS: ASCORBIC ACID 500 MG TABLET PO SCH (08:57)
[2021-01-30] MEDS: DEXT 5%/0.45% NACL 1000ML 1,000 ML IV SCH (12:04)
[2021-01-30 12:17] LABS: HEMATOCRIT. 26.4 % (42.0-52.0); HEMOGLOBIN. 8.3 g/dL (14.0-18.0); MEAN CORPUSCULAR HEMOGLOBIN 24.7 pg (28.0-32.0); MEAN CORPUSCULAR VOLUME 78.4 fL (80.0-94.0); MEAN PLATELET VOLUME 7.9 fl (7.4-10.4); PLATELET 228 x1000/uL (130-400); RED BLOOD CELL COUNT 3.37 mill/uL (4.7-6.1); RED CELL DISTRIBUTION WIDTH 17.8 % (11.6-14.6)
[2021-01-30 12:27] LABS: INR 1.1; PROTHROMBIN TIME 11.9 sec (9.6-11.0)
[2021-01-30 12:38] LABS: TOTAL IRON BINDING CAPACITY 106 ug/dL (250-450)
[2021-01-30 13:11] LABS: CHLORIDE 104 mEq/L (98-107)
[2021-01-30 13:24] LABS: PLATELET ESTIMATE NORMAL
[2021-01-30] MEDS ORDERED: POTASSIUM CHLORIDE 20MEQ/PACKET GT SCH (13:30)
== END 2021-01-30 19:35 | DRG 393 ==
LOC: ER 14:45 → 6WST 16:38 → ENRESERV 22:24
PROVIDERS: ADMIT Internal Medicine; ATTEND Internal Medicine
PROC: 30233N1 Transfusion of Nonautologous Red Blood Cells into Peripheral Vein, Percutaneous Approach (ICD-10-PCS; principal; 2021-01-16)
PROC: 02HV33Z Insertion of Infusion Device into Superior Vena Cava, Percutaneous Approach (ICD-10-PCS; 2021-01-24)
PROC: B5181ZA Fluoroscopy of Superior Vena Cava using Low Osmolar Contrast, Guidance (ICD-10-PCS; 2021-01-24)
PROC: B548ZZA Ultrasonography of Superior Vena Cava, Guidance (ICD-10-PCS; 2021-01-24)
PROC: 0DH63UZ Insertion of Feeding Device into Stomach, Percutaneous Approach (ICD-10-PCS; 2021-01-28)
DX: K94.23 Gastrostomy malfunction (principal); E43 Unspecified severe protein-calorie malnutrition; I50.32 Chronic diastolic (congestive) heart failure; N13.8 Other obstructive and reflux uropathy; C15.9 Malignant neoplasm of esophagus, unspecified; K22.10 Ulcer of esophagus without bleeding; N40.1 Benign prostatic hyperplasia with lower urinary tract symptoms; Z20.822 Contact with and (suspected) exposure to COVID-19; I25.10 Atherosclerotic heart disease of native coronary artery without angina pectoris; D64.9 Anemia, unspecified; R62.7 Adult failure to thrive; E78.5 Hyperlipidemia, unspecified; I73.9 Peripheral vascular disease, unspecified; I87.2 Venous insufficiency (chronic) (peripheral); E05.90 Thyrotoxicosis, unspecified without thyrotoxic crisis or storm; F03.90 Unspecified dementia, unspecified severity, without behavioral disturbance, psychotic disturbance, mood disturbance, and anxiety; L89.156 Pressure-induced deep tissue damage of sacral region; R13.12 Dysphagia, oropharyngeal phase; J44.9 Chronic obstructive pulmonary disease, unspecified; I11.0 Hypertensive heart disease with heart failure; F41.9 Anxiety disorder, unspecified; Z86.711 Personal history of pulmonary embolism; Z68.22 Body mass index [BMI] 22.0-22.9, adult; Z79.01 Long term (current) use of anticoagulants; Z74.01 Bed confinement status
CPT/HCPCS: 36415; 36573; 49450; 71045; 80048; 80053; 82040; 82728; 83540; 83550; 84134; 85014; 85018; 85025; 86850; 86900; 86920; 87426; 93005; 94640; 94667; 97161; 99291; A6261; C1725; C1769; C9113; J0360; J0690; J1650; J1956; J2250; J2765; J3010; J3480; J3490; J7060; J7608; P9016; Q9967; A4315